=== PATIENT | female | born 2000 | race Caucasian/White ===

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

== ENCOUNTER → 2019-11-23 16:20 | Outpatient (CLI) | payer OTHER, MEDICAID, SELFPAY ==
[2019-11-26 03:07] LABS: Chlamydia By Nucleic Acid AMP Negative (Negative)
[2019-11-26 08:25] LABS: Gonococcus By Nucleic Acid AMP Negative (Negative)
== END ==
PROVIDERS: PCP Pediatrics; Visit Provider Student in an Organized Health Care Education/Training Program
DX: Z11.3 Encounter for screening for infections with a predominantly sexual mode of transmission (principal)
CPT/HCPCS: 87491; 87591

== ENCOUNTER → 2020-04-11 15:05 | Outpatient (CLI) | payer OTHER, MEDICAID, SELFPAY ==
[2020-04-11 17:01] LABS: Hematocrit 37.5 % (37-47); Hemoglobin 12.6 g/dL (12.0-15.0); Mean Corp Hgb Conc 33.6 g/dL (32-36); Mean Corpuscular Hgb 29.5 pg (27.0-32.0); Mean Corpuscular Volume 87.8 fL (81-99); Mean Platelet Vol. 10.5 fl (6.2-12.0); Platelet Count 293 K/mm3 (150-450); RBC Distribution Width CV 14.3 % (11.6-14.6); RBC Distribution Width SD 43.3 fl (35.1-43.9); Red Blood Count 4.27 M/mm3 (4.2-5.4); White Blood Count 7.5 K/mm3 (4.4-11.0)
[2020-04-11 17:46] LABS: T4 Free Direct 1.07 ng/dL (0.76-1.46)
== END ==
PROVIDERS: PCP Pediatrics; Visit Provider Student in an Organized Health Care Education/Training Program
DX: N92.6 Irregular menstruation, unspecified (principal)
CPT/HCPCS: 36415; 84439; 84443; 85027

== ENCOUNTER → 2021-11-24 | Outpatient (CLI) | payer MEDICAID, SELFPAY ==
[2021-11-24 10:52] LABS: Absolute Lymphocyte Count 3.08 X10^3/uL (0.83-4.51); Absolute Neutrophil Count 6.1 X10^3/uL (2.0-7.7); Basophil# 0.03 X10^3/uL; Basophil% 0.3 % (0-1); Eosinophil# 0.26 X10^3/uL; Eosinophils% 2.5 % (0-5); Hemoglobin 11.6 g/dL (12.0-15.0); Lymphocyte # 3.08 X10^3/ul (0.83-4.51); Lymphocyte % 30.2 % (19-41); Mean Corp Hgb Conc 32.2 g/dL (32-36); Mean Corpuscular Hgb 27.9 pg (27.0-32.0); Mean Corpuscular Volume 86.5 fL (81-99); Mean Platelet Vol. 10.9 fl (6.2-12.0); Monocyte# 0.74 X10^3/uL; Monocyte% 7.2 % (0-10); NRBC Flagged by Analyzer 0 % (0-5); Neutrophil # 6.07 X10^3/uL (2.7-7.7); Neutrophil % 59.5 % (47-70); Platelet Count 319 K/mm3 (150-450); RBC Distribution Width SD 40.6 fl (35.1-43.9); Red Blood Count 4.16 M/mm3 (4.2-5.4); White Blood Count 10.2 K/mm3 (4.4-11.0)
[2021-11-24 12:00] LABS: HIV - WCH Non-Reactive (Nonreactive); Hepatitis B Surface Antigen Non-Reactive (Nonreactive); Hepatitis C Antibody Non-Reactive (Nonreactive); Rubella IgG Reactive (Nonreactive); Syphilis Antibodies Non-reactive
[2021-11-25 11:09] LABS: V-Zoster IgG (Immunity) 181 index (Immune >165)
[2021-11-27 22:06] LABS: Chlamydia By Nucleic Acid AMP Negative (Negative)
[2021-11-28 15:12] LABS: Gonococcus By Nucleic Acid AMP Negative (Negative)
[2021-12-01 20:53] LABS: HPV Reflexed? NOT INDICATED
== END | disposition home or self-care (01) ==
LOC: WOBLAB 09:58
PROVIDERS: PCP Pediatrics; Visit Provider Obstetrics & Gynecology
DX: Z34.81 Encounter for supervision of other normal pregnancy, first trimester (principal)
CPT/HCPCS: 36415; 85025; 86703; 86762; 86780; 86787; 86803; 87086; 87088; 87340; 87491; 87591; 88175; G0145

== ENCOUNTER → 2022-03-13 | Outpatient (CLI) | payer MEDICAID, SELFPAY ==
[2022-03-13 16:42] LABS: Absolute Lymphocyte Count 2.59 X10^3/uL (0.83-4.51); Absolute Neutrophil Count 9.5 X10^3/uL (2.0-7.7); Basophil# 0.03 X10^3/uL; Basophil% 0.2 % (0-1); Eosinophil# 0.13 X10^3/uL; Hematocrit 36.2 % (37-47); Hemoglobin 11.8 g/dL (12.0-15.0); Lymphocyte # 2.59 X10^3/ul (0.83-4.51); Lymphocyte % 19.7 % (19-41); Mean Corp Hgb Conc 32.6 g/dL (32-36); Mean Corpuscular Hgb 28.5 pg (27.0-32.0); Mean Corpuscular Volume 87.4 fL (81-99); Monocyte# 0.78 X10^3/uL; Monocyte% 5.9 % (0-10); NRBC Flagged by Analyzer 0 % (0-5); Neutrophil # 9.53 X10^3/uL (2.7-7.7); Neutrophil % 72.5 % (47-70); Platelet Count 296 K/mm3 (150-450); RBC Distribution Width CV 13.5 % (11.6-14.6); RBC Distribution Width SD 42.8 fl (35.1-43.9); Red Blood Count 4.14 M/mm3 (4.2-5.4); White Blood Count 13.2 K/mm3 (4.4-11.0)
[2022-03-13 17:34] LABS: Glucose Challenge Gest 1H 50g 101 mg/dL (70-140)
== END | disposition home or self-care (01) ==
LOC: WOBLAB 16:00
PROVIDERS: PCP Pediatrics; Visit Provider Obstetrics & Gynecology
DX: Z34.82 Encounter for supervision of other normal pregnancy, second trimester (principal)
CPT/HCPCS: 36415; 82950; 85025

== ENCOUNTER → 2022-05-08 | Outpatient (CLI) | payer MEDICAID, SELFPAY ==
[2022-05-08 16:08] LABS: Absolute Neutrophil Count 10.2 X10^3/uL (2.0-7.7); Basophil# 0.03 X10^3/uL; Basophil% 0.2 % (0-1); Eosinophil# 0.13 X10^3/uL; Eosinophils% 0.9 % (0-5); Hematocrit 34.3 % (37-47); Hemoglobin 10.7 g/dL (12.0-15.0); Lymphocyte % 17.2 % (19-41); Mean Corp Hgb Conc 31.2 g/dL (32-36); Mean Corpuscular Hgb 26.8 pg (27.0-32.0); Mean Platelet Vol. 10.5 fl (6.2-12.0); Monocyte# 1.04 X10^3/uL; Monocyte% 7.5 % (0-10); NRBC Flagged by Analyzer 0 % (0-5); Neutrophil # 10.22 X10^3/uL (2.7-7.7); Neutrophil % 73.5 % (47-70); Platelet Count 334 K/mm3 (150-450); RBC Distribution Width CV 13.7 % (11.6-14.6); RBC Distribution Width SD 42.5 fl (35.1-43.9); Red Blood Count 3.99 M/mm3 (4.2-5.4); White Blood Count 13.9 K/mm3 (4.4-11.0)
[2022-05-08 16:27] LABS: Protein, Urine (Random) 29.1 mg/dL (<11.9); Protein:Creat Ratio 153 mg/g CRE (0-200)
[2022-05-08 16:36] LABS: ALB/GLOB Ratio 0.5 RATIO (0.9-2.4); AST(SGOT) 10 U/L (15-37); Alanine Aminotransfer ALT/SGPT 9 U/L (13-56); Albumin, Serum 2.1 g/dL (3.2-5.0); Alkaline Phosphatase 166 U/L (45-117); Anion Gap 10 (5-15); BUN 5 mg/dL (7-18); BUN/Creat Ratio 9.2 RATIO (10-20); Chloride 106 mmol/L (98-107); Creatinine, Serum 0.54 mg/dL (0.55-1.02); EST Glomerular Filtration Rate 148 mL/min (>60); Est Glom Filt Rate - Afr Amer 179 mL/min (>60); Globulin 4.3 g/dL (2.2-4.2); Glucose 89 mg/dL (74-106); LDH 182 U/L (84-246); Potassium 3.5 mmol/L (3.5-5.1); Protein, Total 6.4 g/dL (6.4-8.2); Sodium Level 140 mmol/L (136-145)
== END | disposition home or self-care (01) ==
LOC: WOBLAB 15:07
PROVIDERS: PCP Pediatrics; Visit Provider Obstetrics & Gynecology
DX: O13.3 Gestational [pregnancy-induced] hypertension without significant proteinuria, third trimester (principal); Z3A.00 Weeks of gestation of pregnancy not specified
CPT/HCPCS: 36415; 80053; 82570; 83615; 84156; 85025; 87086; 87088

== ENCOUNTER 2022-06-06 17:55 | Inpatient (IN) | payer MEDICAID, SELFPAY ==
[2022-06-06] VITALS (105 sets, daily range): BP systolic 124–200; BP diastolic 63–111; PULSE 77–118; RESP 16–20; TEMP 36.6–37.2; O2SAT 87–100; BMI 52.2
[2022-06-06 17:40] LABS: Hematocrit 34.4 % (37-47); Hemoglobin 10.9 g/dL (12.0-15.0); Mean Corp Hgb Conc 31.7 g/dL (32-36); Mean Corpuscular Hgb 26.1 pg (27.0-32.0); Mean Corpuscular Volume 82.3 fL (81-99); Mean Platelet Vol. 10.6 fl (6.2-12.0); Platelet Count 306 K/mm3 (150-450); RBC Distribution Width CV 14.8 % (11.6-14.6); Red Blood Count 4.18 M/mm3 (4.2-5.4); White Blood Count 14.5 K/mm3 (4.4-11.0)
[2022-06-06 18:00] LABS: AST(SGOT) 15 U/L (15-37); Alanine Aminotransfer ALT/SGPT 14 U/L (13-56); Creatinine, Serum 0.65 mg/dL (0.55-1.02); EST Glomerular Filtration Rate 121 mL/min (>60); Est Glom Filt Rate - Afr Amer 147 mL/min (>60); Estimated Creatinine Clearance 117.23 ml/min; Uric Acid 5.9 mg/dL (2.6-6.0)
[2022-06-06] MEDS: NIFEdipine 10 MG Capsule PO (18:06)
[2022-06-06 18:17] LABS: Protein, Urine (Random) 1420.6 mg/dL (<11.9); Protein:Creat Ratio 4583 mg/g CRE (0-200)
[2022-06-06] MEDS: Magnesium Sulfate 4gm/100mL 4 GM/100 ML IV.SOLN. IV (18:45)
[2022-06-06] MEDS: Lactated Ringers 1,000 ML 15 ML IV (18:49)
--- NOTE | 2022-06-06 18:56 | HP.PCM.OB_ITS ---
History and Physical Date of Admission: 06/06/22 Chief complaint: Elevated blood pressures History present illness: 21-year-old at 36 weeks and 5 days with CHELI 06/29/2022 arrives from office with elevated blood pressures. Patient denies headache, visual change, chest pain, shortness of breath, nausea vomit, right upper quadrant pain. Patient states good movement. is complicated by now preeclampsia with severe features based on severe range blood pressures, BMI 52, anxiety and depression Obstetric history: G1: Term male 9 pounds 12 ounces G2: Current Past medical history: Preeclampsia with severe features, anxiety and depression Medications: Lexapro, Vistaril Allergies: No known drug allergies Past surgical history: None Family history: Denies history DVT or PE Social history: Former smoker, denies alcohol use, drug use Review of systems: Besides above pertinent positives a full review of systems was performed and found to be negative Physical exam: Current vitals: Blood pressure 146/81 pulse 84 SPO2 97% on room air General: Normal-appearing no acute distress HEENT: Normocephalic/atraumatic no cervical lymphadenopathy Cardiac/respiratory: No use of accessory muscles, nonlabored breathing Abdomen: Soft, nontender, gravid Pelvic exam: Cervical exam 60/-3 Extremities: No peripheral edema normal peripheral pulses Psych: Normal affect and demeanor nonpressured speech Labs: White blood cell count 14.5 hemoglobin 10.9 hematocrit 34.4% platelets 306. Creatinine 0.65. AST 15 ALT 14. Urine protein creatinine ratio 4583 Assessment and plan: 21-year-old G2, P1 at 36 weeks and 5 days arrives from office with elevated blood pressures, HELLP labs order given from office. Arrived to patient's room with patient with severe range blood pressure, 187/109, no other staff present in room. Discussed with charge nurse the patient had arrived to triage greater than an hour ago with initial vitals just taken and severe range blood pressure with no staff in room. Given orders for nifedipine 10 mg p.o. now as patient did not have IV line and had possible unknown severe range blood pressures between time of arrival and initial blood pressure. Prior to nifedipine repeat BP 198/111. Patient laying comfortably in bed remains asymptomatic. Verbal orders given to charge nurse for p.o. nifedipine 10 mg now. Given instructions if IV line could not be obtained to give IM mag 10 g total, 5 g in each buttocks. Anesthesia was called for IV line. IM mag arrived to room after discussion with pharmacy via charge nurse. With anesthesia present with ultrasound-guided IV being attempted, held IM mag, IV mag in the room. Anesthesia obtained IV line, order for magnesium 6 g bolus and to run at 2 g an hour. Fluid restriction 150 cc an hour. Educated patient on severe preeclampsia, discussed treatment plan including magnesium while in patient room for above evaluation. Also discussed and need for induction, discussed risks of baby. Patient states understanding and wishes to proceed. GBS unknown to start penicillin. Repeat blood pressures nonsevere range after nifedipine given. Magnesium level in 6 hours after bolus. We will continue to monitor BP's. For Pitocin for induction. Ashwini now. Discussed case with Quality Engineer Medical Device
[2022-06-06] MEDS: Magnesium Sulfate 4gm/100mL 2 GM/50 ML IV.SOLN. IV (19:05)
[2022-06-06 19:14] LABS: Mucous, Urine 0 SEEN /hpf (<or=2+)
[2022-06-06] MEDS: Magnesium Sulfate 20 GM/500 ML BAG IV (19:20)
[2022-06-06 19:22] LABS: Color, Urine Yellow (Yellow); Glucose, Dipstick Normal (Normal); Ketone-Dipstick 5 mg/dl (Negative); Leukocyte Esterase-Dipstick 25 /ul (Negative); Nitrite-Dipstick Negative (Negative); Occult Blood-Urine 25 /ul (Negative); Protein-Dipstick 500 mg/dl (Negative); Specific Gravity, Urine 1.025 (1.002-1.030); Urine Bilirubin Dipstick Negative (Negative); Urine Clarity Cloudy (Clear); Urine Urobilinogen Normal (Normal)
[2022-06-06] MEDS: Betamethasone/Betamethasone 30 MG/5 ML Vial 12 MG IM (19:32)
[2022-06-06 19:35] LABS: Red Blood Cells-Urine 0-5 SEEN /hpf (0-5); Squamous Epithelial Cells - UA 10-25 SEEN /hpf (5-10); White Blood Cells 25-50 SEEN /hpf (0-5)
[2022-06-06 19:36] LABS: Bacteria 3+ /hpf (None Seen)
[2022-06-06 19:37] LABS: Hyaline Cast 10-25 SEEN /lpf (0-5)
[2022-06-06 19:48] LABS: Syphilis Antibodies Non-reactive
[2022-06-06] MEDS: Oxytocin 15 Units/NS 250ml 15 UNITS/250 ML IV.SOLN 2 UNITS IV (20:19)
[2022-06-06 20:47] LABS: Group B Strep DNA By PCR Negative (Negative); Internal Control PASS; Probe Check PASS; Specimen Processing Control PASS
[2022-06-06] MEDS: Labetalol 100 MG Tablet PO (20:58)
[2022-06-06] MEDS: Labetalol (Prefilled) 20 MG/4 ML IV (21:45)
[2022-06-06] MEDS: Labetalol 200 MG Tablet PO (22:06)
[2022-06-06] MEDS: LACTATED RINGERS 500 ML 999 ML IV (23:20)
[2022-06-06] MEDS: Penicillin G 3,000,000 Units 50 ML 100 UNITS IV (23:49)
[2022-06-07] VITALS (170 sets, daily range): BP systolic 80–149; BP diastolic 31–86; PULSE 64–101; RESP 16–21; TEMP 35.9–36.8; O2SAT 85–100
[2022-06-07] MEDS: fentaNYL-bupivacaine (epidural) 100 ML BAG EPIDURAL (00:14)
[2022-06-07 01:22] LABS: Magnesium 5.1 mg/dL (1.6-2.6)
[2022-06-07] MEDS: Albuterol 2.5 MG/3 ML VIAL.NEB. INHALATION (01:45)
--- NOTE | 2022-06-07 02:10 | CPS ---
Pt is breathing shallow..encouraged pt to deep breathe throughout aerosol tx, and also afterwards RT gave incentive spirometer to continue deep breathing exercises. RN aware , was present throughout breathing treatment. Pt is requiring nasal o2 3L.
--- NOTE | 2022-06-07 03:50 | RAD_ITS ---
EXAM: XR CHEST, 1 VIEW CLINICAL INDICATION: low oxygen saturation TECHNIQUE: Frontal view of the chest. This report was created using [employer] report generation technology. COMPARISON: None. FINDINGS: LUNGS AND PLEURAL SPACES: Streaky opacities in the lower lobes bilaterally may be due to atelectasis but areas of pneumonia cannot be excluded. Pulmonary vascular congestion. No pneumothorax. No effusion. HEART: Mild cardiomegaly. MEDIASTINUM: Central airways and mediastinal contour are unremarkable. BONES/JOINTS: Unremarkable. SOFT TISSUES: Unremarkable. RAD/Chest 1 View (Portable) IMPRESSION: 1. Streaky opacities in the lower lobes bilaterally may be due to atelectasis but areas of pneumonia cannot be excluded. 2. Mild cardiomegaly. 3. Pulmonary vascular congestion. Electronically Signed: Dimitrios Babcock MD at 4:59 EDT ,
[2022-06-07] MEDS: Penicillin G 3,000,000 Units 50 ML 100 UNITS IV ×3 (03:59→11:28)
--- NOTE | 2022-06-07 04:30 | CT_ITS ---
EXAM: CT ANGIOGRAPHY CHEST WITHOUT AND WITH INTRAVENOUS CONTRAST CLINICAL INDICATION: Decreased SpO2 TECHNIQUE: Helically acquired angiography images were obtained of the chest without and with intravenous contrast. This CT exam was performed using one or more of the following dose reduction techniques: automated exposure control, adjustment of the mA and/or kV according to patient size, and/or use of iterative reconstruction technique. This report was created using [employer] report generation technology. MIP reconstructed images were created and reviewed. CONTRAST: 100 cc of Isovue-370 IV. RADIATION DOSE: CTDIvol = 34.97 mGy, DLP = 770.75 mGy-cm. COMPARISON: None. FINDINGS: PULMONARY ARTERIES: Unremarkable. Normal in caliber. No evidence of pulmonary embolism. AORTA: Unremarkable. Normal in caliber. No evidence of dissection. GREAT VESSELS OF AORTIC ARCH: Unremarkable. Normal in caliber. No evidence of dissection. LUNGS AND PLEURAL SPACES: Slight bilateral pleural effusions. Subsegmental atelectasis in the lower lobes bilaterally. No mass. No pneumothorax. HEART: Unremarkable. Heart size is normal. No pericardial effusion. No signs of right heart strain, ratio of right ventricle to left ventricle measures less than 1. MEDIASTINUM: Unremarkable. No mediastinal or hilar adenopathy. Esophagus is unremarkable. No hiatal hernia. THYROID: Unremarkable. No thyroid lesions. BONES/JOINTS: Unremarkable. No suspicious lytic or blastic abnormality. CT/CTA Chest W/WO Contrast IMPRESSION: 1. No pulmonary embolism or dissection. 2. Slight bilateral pleural effusions. 3. Subsegmental atelectasis in the lower lobes bilaterally. Electronically Signed: Dimitrios Babcock MD at 5:09 EDT ,
--- NOTE | 2022-06-07 05:06 | EKG12_ITS ---
Test Reason : HYPOXIA Blood Pressure : / mmHG Vent. Rate : 082 BPM Atrial Rate : 082 BPM P-R Int : 162 ms QRS Dur : 082 ms QT Int : 448 ms P-R-T Axes : 052 045 067 degrees QTc Int : 523 ms Normal sinus rhythm Prolonged QT Abnormal ECG No previous ECGs available Confirmed by FABRICE DENIS, XAVIER ([id number]), society editor PINEDA MUNOZ ([id number]) on 06/12/2022 7:49:37 AM Referred By: Saman Telles Confirmed By:ADALBERTO AVINA MD
--- NOTE | 2022-06-07 05:09 | PN.OBGYN_ITS ---
Subjective Subjective Overall no overnight complaints. Patient resting comfortably in bed. With no complaints. Denies shortness of breath, weakness, dizziness, headache, vision changes, chest pain, nausea vomit, right upper quadrant pain. Patient states asymptomatic Objective Data Objective Data Vital Signs: Vital Signs Temp Pulse Resp BP Pulse Ox O2 Del Method O2 Flow Rate 96.6 F L 89 16 141/76 H 94 Nasal Cannula 3 06/07/22 03:33 06/07/22 05:06 06/07/22 01:45 06/07/22 05:04 06/07/22 05:06 06/07/22 01:45 06/07/22 01:45 Oxygen Flow Rate (L/min) 3 Oxygen Delivery Method Nasal Cannula Weight: 304 lb Body Mass Index (BMI) 52.2 Intake & Output: Intake and Output for Last 24 Hours 06/05/22 06/06/22 06/07/22 23:59 23:59 23:59 Intake Total 356.2 / 356.2 407.23 / 407.23 Output Total 300 / 300 125 / 125 Balance 56.2 / 56.2 282.23 / 282.23 Lab / Micro Data Result Diagrams: 06/06/22 17:20 06/06/22 17:20 Labs: Laboratory Results - last 24 hr 06/06/22 17:20: WBC 14.5 H, RBC 4.18 L, Hgb 10.9 L, Hct 34.4 L, MCV 82.3, MCH 26.1 L, MCHC 31.7 L, RDW Std Deviation 43.0, RDW Coeff of Terrance 14.8 H, Plt Count 306, MPV 10.6 06/06/22 17:20: U Random Total Protein 1420.6 H, Urine Creatinine 310.00, Protein/Creatinin Ratio 4583 H 06/06/22 17:20: Creatinine 0.65, Estim Creat Clear Calc 117.23, Est GFR (MDRD) Af Amer 147, Est GFR (MDRD) Non-Af 121, Uric Acid 5.9, AST 15, ALT 14 06/06/22 18:10: Blood Type A POSITIVE, Antibody Screen NEGATIVE 06/06/22 18:40: Urine Color Yellow, Urine Clarity Cloudy, Urine pH 6.0, Ur Specific [place] 1.025, Urine Protein 500 H, Urine Glucose (UA) Normal, Urine Ketones 5 H, Urine Occult Blood 25 H, Urine Nitrite Negative, Urine Bilirubin Negative, Urine Urobilinogen Normal, Ur Leukocyte Esterase 25 H, Urine RBC 0-5 SEEN, Urine WBC 25-50 SEEN, Ur Squamous Epith Cells 10-25 SEEN, Urine Bacteria 3+, Hyaline Casts 10-25 SEEN, Urine Mucus 0 SEEN 06/06/22 18:40: Group B Strep DNA Negative, Specimen Comment Not Reportable 06/06/22 18:45: Syphilis Total Ab Non-reactive 06/07/22 01:02: Magnesium 5.1 H* Radiography Diagnostic Testing: Radiology Impression Chest X-Ray 06/07/22 03:50 IMPRESSION: 1. Streaky opacities in the lower lobes bilaterally may be due to atelectasis but areas of pneumonia cannot be excluded. 2. Mild cardiomegaly. 3. Pulmonary vascular congestion. Electronically Signed: Dimitrios Babcock MD at 4:59 EDT , Physical Exam Const alert, oriented x3, no apparent distress, average body habitus, healthy appearing and well nourished HEENT normocephalic and moist oral mucous membranes Eyes PERRL Neck full ROM Resp normal respiratory effort, no retractions, no use of accessory muscles and clear to auscultation bilaterally Cardio regular rate, regular rhythm, no murmurs, no rub and no gallops GI GI Narrative: Soft, nontender, gravid, obese Extremity normal to inspection and full ROM Extremity Narrative: Normal peripheral pulses in bilateral lower extremities Neuro moves all extremities, no focal motor deficits and deep tendon reflexes 2+ bilaterally Motor Exam: clonus absent Psych mental status grossly normal, affect normal, speech normal and activity/motor behavior normal Assessment & Plan (1) : PLAN: Called overnight by nursing after patient received epidural that patient was hypotensive and requiring facemask oxygen, was reported that patient overall asymptomatic and stable. Instructed to keep SPO2 above 92%, latest magnesium level 5.1 but instructed nursing to turn down magnesium from 2 g an hour to 1.5 g an hour at this time, and to have anesthesia evaluate hypotension after epidural and SPO2 decreased after epidural. Called back by nursing that after anesthesia evaluation nebulizer was ordered by anesthesia, epidural at this time was stopped. Called back by nursing with no improvement after nebulizer, patient still asymptomatic. I arrived for evaluation, patient resting comfortably in bed now off facemask oxygen SPO2 94% on room air, patient not using any accessory muscles and nonlabored breathing. Discussed situation with patient and patient states asymptomatic does not feel short of breath. Auscultation to heart and lungs benign. Patient does states she recently had upper respiratory tract infection. Denies cough, hemoptysis, bilateral lower extremities with no signs of DVT, pulse less than 100. Overall wells criteria 0 but educated patient should rule out signs of PE. Chest x-ray ordered, pulmonary congestion noted. CTA of chest ordered stat, results pending. EKG ordered. Overall patient remains asymptomatic and now SPO2 remains above 92% on room air. Pending results of CTA and EKG we will reevaluate and assess situation.
[2022-06-07] MEDS: Magnesium Sulfate 20 GM/500 ML BAG IV ×2 (06:32→17:37)
[2022-06-07 07:27] LABS: Magnesium 5.6 mg/dL (1.6-2.6)
[2022-06-07] MEDS: Labetalol 100 MG Tablet 300 MG PO (10:21)
[2022-06-07] MEDS: LACTATED RINGERS 500 ML 666 ML IV (10:29)
[2022-06-07] MEDS: 0.9% Saline Lock 10 ML Syringe IV ×4 (10:41→23:34)
[2022-06-07 11:19] LABS: Magnesium 5.8 mg/dL (1.6-2.6)
[2022-06-07] MEDS: Terbutaline 1 MG/ML Vial 0.25 MG SC (11:39)
--- NOTE | 2022-06-07 11:48 | PN.OBGYN_ITS ---
Subjective Subjective Patient remains asymptomatic. Denies headache, vision changes, chest pain, shortness of breath, nausea vomit, right upper quadrant pain. Objective Data Objective Data Vital Signs: Vital Signs Temp Pulse Resp BP Pulse Ox O2 Del Method O2 Flow Rate 98.2 F 97 18 140/83 H 98 Room Air 3 06/07/22 09:33 06/07/22 11:42 06/07/22 06:00 06/07/22 11:21 06/07/22 11:42 06/07/22 06:00 06/07/22 01:45 Oxygen Flow Rate (L/min) 3 Oxygen Delivery Method Room Air Weight: 304 lb Body Mass Index (BMI) 52.2 Intake & Output: Intake and Output for Last 24 Hours 06/05/22 06/06/22 06/07/22 23:59 23:59 23:59 Intake Total 858.95 / 858.95 1635.23 / 1635.23 Output Total 300 / 300 602 / 602 Balance 558.95 / 558.95 1033.23 / 1033.23 Lab / Micro Data Result Diagrams: 06/06/22 17:20 06/06/22 17:20 Labs: Laboratory Results - last 24 hr 06/06/22 17:20: WBC 14.5 H, RBC 4.18 L, Hgb 10.9 L, Hct 34.4 L, MCV 82.3, MCH 26.1 L, MCHC 31.7 L, RDW Std Deviation 43.0, RDW Coeff of Terrance 14.8 H, Plt Count 306, MPV 10.6 06/06/22 17:20: U Random Total Protein 1420.6 H, Urine Creatinine 310.00, Protein/Creatinin Ratio 4583 H 06/06/22 17:20: Creatinine 0.65, Estim Creat Clear Calc 117.23, Est GFR (MDRD) Af Amer 147, Est GFR (MDRD) Non-Af 121, Uric Acid 5.9, AST 15, ALT 14 06/06/22 18:10: Blood Type A POSITIVE, Antibody Screen NEGATIVE 06/06/22 18:40: Urine Color Yellow, Urine Clarity Cloudy, Urine pH 6.0, Ur Specific [place] 1.025, Urine Protein 500 H, Urine Glucose (UA) Normal, Urine Ketones 5 H, Urine Occult Blood 25 H, Urine Nitrite Negative, Urine Bilirubin Negative, Urine Urobilinogen Normal, Ur Leukocyte Esterase 25 H, Urine RBC 0-5 SEEN, Urine WBC 25-50 SEEN, Ur Squamous Epith Cells 10-25 SEEN, Urine Bacteria 3+, Hyaline Casts 10-25 SEEN, Urine Mucus 0 SEEN 06/06/22 18:40: Group B Strep DNA Negative, Specimen Comment Not Reportable 06/06/22 18:45: Syphilis Total Ab Non-reactive 06/07/22 01:02: Magnesium 5.1 H* 06/07/22 06:45: Magnesium 5.6 H* 06/07/22 10:25: Magnesium 5.8 H* Micro: Microbiology 06/06/22 Unknown Genital vaginal Group B Streptococcus Culture - Preliminary Radiography Diagnostic Testing: Radiology Impression Chest X-Ray 06/07/22 03:50 IMPRESSION: 1. Streaky opacities in the lower lobes bilaterally may be due to atelectasis but areas of pneumonia cannot be excluded. 2. Mild cardiomegaly. 3. Pulmonary vascular congestion. Electronically Signed: Dimitrios Babcock MD at 4:59 EDT , Chest CTA 06/07/22 04:30 IMPRESSION: 1. No pulmonary embolism or dissection. 2. Slight bilateral pleural effusions. 3. Subsegmental atelectasis in the lower lobes bilaterally. Electronically Signed: Dimitrios Babcock MD at 5:09 EDT , Physical Exam Const alert, oriented x3 and no apparent distress HEENT normocephalic and moist oral mucous membranes Eyes PERRL Neck full ROM GI GI Narrative: Soft, nontender, gravid, obese Narrative: Cervical exam: Unchanged Extremity normal to inspection and full ROM Neuro moves all extremities, no focal motor deficits and deep tendon reflexes 2+ bilaterally Motor Exam: clonus present Bilaterally Psych mental status grossly normal, affect normal, speech normal and activity/motor behavior normal Assessment & Plan (1) : PLAN: Initially called by nursing with bilateral clonus that was prominent. Overall patient asymptomatic otherwise. Reviewed clonus with nursing, discussed management options. Ultimately given orders for increase mag to 2 g/h and for mag level now. Assuming therapeutic mag level instructed to continue to monitor as patient is already being treated with magnesium for seizure prophylaxis. Again called by nursing with update with prolonged decelerations x2 when sitting up for epidural with anesthesia in the room. Decelerations resolved with position change but could not stay in upright position with intolerance for epidural. Discussed options including left lateral position for epidural placement versus natural labor. Patient declines natural labor. Anesthesia states okay to attempt lateral position for epidural placement. Instructed nursing to attempt lateral epidural placement. I began to physically proceed to labor and delivery, called by nursing that patient now with decelerations with no position change. Discussed with nursing that I would be there within minutes. Upon my arrival evaluation was performed. Reviewed heart rate tracing with nursing and patient. Discussed options with patient for terbutaline and expectant management to later attempt to start Pitocin and attempt for vaginal delivery versus primary section risk benefits alternatives. All questions answered from patient and partner, patient elects for terbutaline and expectant management with goal to restart Pitocin. Patient or stands risk for terminal deceleration and emergency section, states understanding wish to proceed. Terbutaline order given to nursing. Terbutaline given. Discussed care options with anesthesia and discussed anesthesia options for patient both for labor and section. Cervical exam performed, unchanged no signs of other pathology. Discussed with nursing that if variable decelerations occur to start amnioinfusion, amnioinfusion bolus 150 cc and 80 cc/h if recurrent variables occur. Again all questions answered for patient and partner
[2022-06-07 13:41] LABS: Magnesium 6.3 mg/dL (1.6-2.6)
--- NOTE | 2022-06-07 13:59 | PN.OBGYN_ITS ---
Subjective Subjective No complaints. Denies shortness of breath, weakness, dizziness. Denies headache, visual changes, chest pain, shortness of breath, right upper quadrant pain. Objective Data Objective Data Vital Signs: Vital Signs Temp Pulse Resp BP Pulse Ox O2 Del Method O2 Flow Rate 98.2 F 85 18 113/58 L 100 Room Air 3 06/07/22 13:48 06/07/22 13:55 06/07/22 06:00 06/07/22 13:40 06/07/22 13:55 06/07/22 06:00 06/07/22 01:45 Oxygen Flow Rate (L/min) 3 Oxygen Delivery Method Room Air Weight: 304 lb Body Mass Index (BMI) 52.2 Intake & Output: Intake and Output for Last 24 Hours 06/05/22 06/06/22 06/07/22 23:59 23:59 23:59 Intake Total 858.95 / 858.95 1745.23 / 1745.23 Output Total 300 / 300 782 / 782 Balance 558.95 / 558.95 963.23 / 963.23 Lab / Micro Data Result Diagrams: 06/06/22 17:20 06/06/22 17:20 Labs: Laboratory Results - last 24 hr 06/06/22 17:20: WBC 14.5 H, RBC 4.18 L, Hgb 10.9 L, Hct 34.4 L, MCV 82.3, MCH 26.1 L, MCHC 31.7 L, RDW Std Deviation 43.0, RDW Coeff of Terrance 14.8 H, Plt Count 306, MPV 10.6 06/06/22 17:20: U Random Total Protein 1420.6 H, Urine Creatinine 310.00, Protein/Creatinin Ratio 4583 H 06/06/22 17:20: Creatinine 0.65, Estim Creat Clear Calc 117.23, Est GFR (MDRD) Af Amer 147, Est GFR (MDRD) Non-Af 121, Uric Acid 5.9, AST 15, ALT 14 06/06/22 18:10: Blood Type A POSITIVE, Antibody Screen NEGATIVE 06/06/22 18:40: Urine Color Yellow, Urine Clarity Cloudy, Urine pH 6.0, Ur Specific [place] 1.025, Urine Protein 500 H, Urine Glucose (UA) Normal, Urine Ketones 5 H, Urine Occult Blood 25 H, Urine Nitrite Negative, Urine Bilirubin Negative, Urine Urobilinogen Normal, Ur Leukocyte Esterase 25 H, Urine RBC 0-5 SEEN, Urine WBC 25-50 SEEN, Ur Squamous Epith Cells 10-25 SEEN, Urine Bacteria 3+, Hyaline Casts 10-25 SEEN, Urine Mucus 0 SEEN 06/06/22 18:40: Group B Strep DNA Negative, Specimen Comment Not Reportable 06/06/22 18:45: Syphilis Total Ab Non-reactive 06/07/22 01:02: Magnesium 5.1 H* 06/07/22 06:45: Magnesium 5.6 H* 06/07/22 10:25: Magnesium 5.8 H* 06/07/22 13:15: Magnesium 6.3 H* Micro: Microbiology 06/06/22 Unknown Genital vaginal Group B Streptococcus Culture - Preliminary Radiography Diagnostic Testing: Radiology Impression Chest X-Ray 06/07/22 03:50 IMPRESSION: 1. Streaky opacities in the lower lobes bilaterally may be due to atelectasis but areas of pneumonia cannot be excluded. 2. Mild cardiomegaly. 3. Pulmonary vascular congestion. Electronically Signed: Dimitrios Babcock MD at 4:59 EDT , Chest CTA 06/07/22 04:30 IMPRESSION: 1. No pulmonary embolism or dissection. 2. Slight bilateral pleural effusions. 3. Subsegmental atelectasis in the lower lobes bilaterally. Electronically Signed: Dimitrios Babcock MD at 5:09 EDT , Physical Exam Const alert, oriented x3 and no apparent distress HEENT normocephalic and moist oral mucous membranes Eyes PERRL Neck full ROM Resp normal respiratory effort, no retractions and no use of accessory muscles Extremity normal to inspection and full ROM Neuro moves all extremities and no focal motor deficits Psych mental status grossly normal, affect normal, speech normal and activity/motor behavior normal Assessment & Plan (1) : PLAN: Called by nursing with minimal variability no acceleration with scalp stim, variable with acoustic stim. Also nursing informed me that while sleeping patient drops SPO2 to 80s. Patient remains asymptomatic. Instructed nursing to keep SPO2 92% and okay to use nasal cannula or nonrebreather to keep SPO2 92% or above. Shortly after orders given arrived to room for evaluation. Patient seen and examined. Remains asymptomatic. Educated patient on likely sleep apnea and BMI related hypoxia. Patient states understanding. Discussed heart rate tracing with nursing and patient, discussed Pitocin protocol with nursing we both agree at that time cannot start Pitocin at this time as not meeting criteria based on protocol. Educated patient on Pitocin protocol and heart rate tracing. Discussed cannot start Pitocin, patient is not aneesh on her own and also overall category 2 tracing. Educated patient on r ecommendation for primary section for intolerance of labor, risk benefits alternatives given discussed in depth risk for infection. Patient discussed with partner. Patient elects for primary section. Patient understands risk of the procedure include but are not limited to visceral or vascular injury, prolonged hospitalization, blood loss and need for transfusion, reoperation. Patient state understanding and wished to proceed. All questions were answered and consent was signed. For 3 g Ancef and 500 mg of azithromycin. Instructed nursing to have Hemabate and Cytotec in room during section. Instructed nursing to call anesthesia to discuss options for an esthesia for this patient. For now
[2022-06-07] MEDS: Sodium Citrate/Citric Acid 30 ML UDC PO (14:20)
[2022-06-07] MEDS: Carboprost Tromethamine 250 MCG/ML Ampul IM (15:02)
--- NOTE | 2022-06-07 15:31 | OP.PCM_ITS ---
Details Operative Information Date of Procedure: 06/07/22 Pre-Operative Diagnosis: Preeclampsia with severe features, intolerance to labor Post-Operative Diagnosis: Preeclampsia with severe features, intolerance to labor [employer]: Gabriele Ryan Findings Description of Procedure: Procedure: Primary low transverse section Via Pfannenstiel incision Surgeon: Saman Telles MD Anesthesia: Spinal EBL: 700 cc IV fluids: 800 cc Urine output: 500 cc Complications: None Specimen: None Findings: Male in vertex position, Apgars 7/8. Normal uterus, tubes, and ovaries. Consent: Patient with intolerance to labor educated on options and patient elects for primary section Via Pfannenstiel incision. Patient understands risk of the procedure include but are not limited to visceral or vascular injury, prolonged hospitalization, blood loss need for transfusion, reoperation. Patient state understanding wish to proceed. All questions were answered and consent was signed. Procedure: Patient was brought back to the OR where spinal anesthesia was found to be adequate. 3 g of Ancef and 500 mg of azithromycin were given for infection prophylaxis. Patient was prepared and draped in a supine position with leftward tilt. A Pfannenstiel incision was made at the skin with a scalpel. The incision was carried down to the fascia with a scalpel. The fascia was excised and extended laterally. Inferior aspect of the fascia was grasped with a clamp and the underlying rectus and pyramidalis muscle were dissected off sharply with Esposito scissors. In similar aspect the superior aspect of the fascia was grasped with a clamp and the underlying rectus muscle was dissected off sharply. Rectus muscle was dissected at the midline down to the level of the pubic symphysis. Preperitoneal fatty tissue was noted peritoneum was entered bluntly. Peritoneum was extended superiorly and inferiorly with good visualization of bladder. Bladder blade was inserted and vesicouterine peritoneum was identified. Low transverse hysterotomy was made. Hand was placed into the incision and gentle fundal pressure was applied once the head was brought into the incision and the bladder blade was removed. Head and shoulders were delivered with ease. Cord was clamped and cut. Baby handed off to nursing. Placenta was delivered via cord traction and fundal massage for initial portion of placenta, manual extraction of remaining lobe of placenta was removed. Uterus was exteriorized and wiped out with dry laparotomy sponge in order to remove remaining placental membranes. Internal portion of the uterus was inspected and no remaining placental tissue was noted and hemostatic. IV oxytocin was initiated in order to facilitate uterine contractions, prophylactic Hemabate IM was given with magnesium use during labor. Uterus was closed in a continuous running fashion. [id number] sutures were used for hemostasis. Good hemostasis was noted. Uterus was placed back into the abdominal cavity and the incision was reinspected, good hemostasis was noted. Fascia was closed in a continuous running fashion with PDS suture. Subcutaneous irrigation was performed. Good hemostasis was noted. Skin was closed in a subcuticular fashion. All counts were correct x2. Patient tolerated procedure well and was brought to recovery in a stable condition.
[2022-06-07] MEDS: Oxytocin 15 Units/NS 250ml 15 UNITS/250 ML IV.SOLN 83 UNITS IV (15:45)
[2022-06-07] MEDS: Acetaminophen 500 MG Tablet 1000 MG PO ×2 (17:34→23:34)
[2022-06-07] MEDS: Ketorolac 30 MG/ML Syringe IV ×2 (17:34→23:34)
[2022-06-07] MEDS: Lactated Ringers 1,000 ML 50 ML IV (19:08)
[2022-06-07] MEDS: HYDROmorphone 0.5 MG/0.5 ML SYRINGE IV (20:25)
[2022-06-07 20:31] LABS: Magnesium 7.1 mg/dL (1.6-2.6)
[2022-06-07] MEDS: Cefazolin 1 GM/50 ML BAG IV (22:19)
[2022-06-08] VITALS (17 sets, daily range): BP systolic 96–150; BP diastolic 54–82; PULSE 66–84; RESP 14–18; TEMP 36.2–37; O2SAT 87–98
[2022-06-08] MEDS: Magnesium Sulfate 20 GM/500 ML BAG IV (03:32)
[2022-06-08] MEDS: Enoxaparin 40 MG/0.4 ML Syringe SC ×3 (03:33→22:01)
[2022-06-08 03:40] LABS: Magnesium 8.4 mg/dL (1.6-2.6)
[2022-06-08] MEDS: Furosemide 20 MG/2 ML VIAL IV (04:25)
[2022-06-08 04:26] LABS: Hematocrit 28.3 % (37-47); Hemoglobin 8.8 g/dL (12.0-15.0); Mean Corp Hgb Conc 31.1 g/dL (32-36); Mean Corpuscular Hgb 26.4 pg (27.0-32.0); Mean Platelet Vol. 10.1 fl (6.2-12.0); Platelet Count 257 K/mm3 (150-450); RBC Distribution Width CV 15.4 % (11.6-14.6); RBC Distribution Width SD 46.9 fl (35.1-43.9); Red Blood Count 3.33 M/mm3 (4.2-5.4); White Blood Count 16.4 K/mm3 (4.4-11.0)
[2022-06-08 04:44] LABS: ALB/GLOB Ratio 0.5 RATIO (0.9-2.4); AST(SGOT) 14 U/L (15-37); Alanine Aminotransfer ALT/SGPT 7 U/L (13-56); Albumin, Serum 1.6 g/dL (3.2-5.0); Alkaline Phosphatase 152 U/L (45-117); Anion Gap 6 (5-15); BUN 12 mg/dL (7-18); BUN/Creat Ratio 15.1 RATIO (10-20); Calcium,Total 6.6 mg/dL (8.5-10.1); Chloride 104 mmol/L (98-107); EST Glomerular Filtration Rate 95 mL/min (>60); Est Glom Filt Rate - Afr Amer 115 mL/min (>60); Estimated Creatinine Clearance 95.25 ml/min; Globulin 3.5 g/dL (2.2-4.2); Glucose 133 mg/dL (74-106); LDH 242 U/L (84-246); Potassium 3.9 mmol/L (3.5-5.1); Protein, Total 5.1 g/dL (6.4-8.2); Sodium Level 136 mmol/L (136-145)
[2022-06-08] MEDS: Cefazolin 1 GM/50 ML BAG IV (05:46)
[2022-06-08] MEDS: Ketorolac 30 MG/ML Syringe IV ×2 (05:46→11:40)
[2022-06-08] MEDS: Acetaminophen 500 MG Tablet 1000 MG PO ×4 (05:47→23:50)
[2022-06-08 06:54] LABS: Magnesium 7.5 mg/dL (1.6-2.6)
--- NOTE | 2022-06-08 08:12 | PN.OBGYN_ITS ---
Subjective Subjective No overnight complaints. Denies headache, vision change, chest pain, shortness of breath, right upper quadrant pain. Denies dizziness or weakness. Ambulating with ease. Voiding spontaneously. Tolerating regular diet Objective Data Objective Data Vital Signs: Vital Signs Temp Pulse Resp BP Pulse Ox O2 Del Method O2 Flow Rate 97.6 F L 66 14 114/57 L 97 Room Air 97 06/08/22 07:44 06/08/22 07:44 06/08/22 07:44 06/08/22 07:44 06/08/22 07:44 06/08/22 07:49 06/08/22 05:30 Oxygen Flow Rate (L/min) 97 Oxygen Delivery Method Room Air Weight: 304 lb Body Mass Index (BMI) 52.2 Intake & Output: Intake and Output for Last 24 Hours 06/06/22 06/07/22 06/08/22 23:59 23:59 23:59 Intake Total 858.95 / 858.95 4019.35 / 4019.35 725.83 / 725.83 Output Total 300 / 300 1844 / 1844 860 / 860 Balance 558.95 / 558.95 2175.35 / 2175.35 -134.17 / -134.17 Lab / Micro Data Result Diagrams: 06/08/22 04:20 06/08/22 04:20 Labs: Laboratory Results - last 24 hr 06/07/22 10:25: Magnesium 5.8 H* 06/07/22 13:15: Magnesium 6.3 H* 06/07/22 19:57: Magnesium 7.1 H* 06/08/22 03:05: Magnesium 8.4 H* 06/08/22 04:20: WBC 16.4 H, RBC 3.33 L, Hgb 8.8 L, Hct 28.3 L, MCV 85.0, MCH 26.4 L, MCHC 31.1 L, RDW Std Deviation 46.9 H, RDW Coeff of Terrance 15.4 H, Plt Count 257, MPV 10.1 06/08/22 04:20: Sodium 136, Potassium 3.9, Chloride 104, Carbon Dioxide 26.0, Anion Gap 6, BUN 12, Creatinine 0.80, Estim Creat Clear Calc 95.25, Est GFR (MDRD) Af Amer 115, Est GFR (MDRD) Non-Af 95, BUN/Creatinine Ratio 15.1, Glucose 133 H, Calcium 6.6 L, Total Bilirubin 0.10 L, AST 14 L, ALT 7 L, Alkaline P hosphatase 152 H, Lactate Dehydrogenase 242, Total Protein 5.1 L, Albumin 1.6 L, Globulin 3.5, Albumin/Globulin Ratio 0.5 L 06/08/22 06:00: Magnesium 7.5 H* Micro: Microbiology 06/06/22 Unknown Genital vaginal Group B Streptococcus Culture - Preliminary Physical Exam Const alert, oriented x3, no apparent distress, average body habitus, healthy appearing and well nourished HEENT normocephalic and moist oral mucous membranes Eyes PERRL Neck full ROM Resp normal respiratory effort, no retractions and no use of accessory muscles GI GI Narrative: Soft, nontender, bandage clean dry and intact Extremity normal to inspection and full ROM Neuro moves all extremities and no focal motor deficits Psych mental status grossly normal, affect normal, speech normal and activity/motor behavior normal Assessment & Plan (1) delivery delivered: PLAN: Postop day 1 status post primary section for intolerance of labor at 36 weeks. Preeclampsia with severe features based on severe range blood pressures currently on labetalol 3 mg twice daily, held yesterday evening after nursing called with borderline hypotension. Nursing to call with 10:00 blood pressure and will give orders for blood pressure meds. Called by nursing overnight with lethargy, HELLP lab and Mg level ordered given to nursing. Called by nursing with mag level 8.4 upper limit of normal. Instructed to stop magnesium and repeat magnesium level in 2 hours. Also discussed swelling with nursing, patient not breast-feeding, IV Lasix 20 mg given. Patient symptoms improved and mag level 7.5, repeat mag level now and to call with value. We will give magnesium orders pending results. We will continue to evaluate throughout the day. Educated patient on findings feeling much improved now this morning, up in chair comfortable. Educated patient on incision care. Continue Ancef 3 g x 24 hours. Lovenox 40 mg twice daily with BMI and section. We will continue to monitor until postop day 3 to day 4
[2022-06-08 08:44] LABS: Magnesium 7.1 mg/dL (1.6-2.6)
[2022-06-08] MEDS: Senna/Docusate Sodium 1 Tablet PO (10:27)
[2022-06-08] MEDS: Escitalopram Oxalate 10 MG Tablet PO (10:27)
[2022-06-08 12:55] LABS: Magnesium 5.4 mg/dL (1.6-2.6)
[2022-06-08] MEDS: Ibuprofen 600 MG Tablet PO ×2 (17:35→23:50)
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
[2022-06-08] MEDS: 0.9% Saline Lock 10 ML Syringe IV (21:06)
[2022-06-08] MEDS: Labetalol 100 MG Tablet 300 MG PO (21:57)
[2022-06-08] MEDS: oxyCODONE 5 MG Tablet PO (23:20)
[2022-06-09] VITALS (17 sets, daily range): BP systolic 116–183; BP diastolic 53–102; PULSE 68–87; RESP 16–18; TEMP 36.4–37.2; O2SAT 93–100
[2022-06-09] MEDS: Acetaminophen 500 MG Tablet 1000 MG PO ×3 (06:07→20:54)
[2022-06-09] MEDS: Ibuprofen 600 MG Tablet PO ×3 (06:07→20:54)
[2022-06-09 06:46] LABS: Absolute Lymphocyte Count 2.37 X10^3/uL (0.83-4.51); Absolute Neutrophil Count 7.4 X10^3/uL (2.0-7.7); Basophil# 0.03 X10^3/uL; Basophil% 0.3 % (0-1); Eosinophil# 0.09 X10^3/uL; Eosinophils% 0.8 % (0-5); Hematocrit 27.4 % (37-47); Hemoglobin 8.2 g/dL (12.0-15.0); Lymphocyte # 2.37 X10^3/ul (0.83-4.51); Lymphocyte % 21.6 % (19-41); Mean Corp Hgb Conc 29.9 g/dL (32-36); Mean Corpuscular Hgb 25.9 pg (27.0-32.0); Mean Corpuscular Volume 86.7 fL (81-99); Monocyte# 0.87 X10^3/uL; Monocyte% 7.9 % (0-10); NRBC Flagged by Analyzer 0.5 % (0-5); Neutrophil # 7.36 X10^3/uL (2.7-7.7); Neutrophil % 66.9 % (47-70); Platelet Count 250 K/mm3 (150-450); RBC Distribution Width CV 15.9 % (11.6-14.6); Red Blood Count 3.16 M/mm3 (4.2-5.4)
[2022-06-09 07:16] LABS: ALB/GLOB Ratio 0.4 RATIO (0.9-2.4); AST(SGOT) 16 U/L (15-37); Alanine Aminotransfer ALT/SGPT 7 U/L (13-56); Albumin, Serum 1.6 g/dL (3.2-5.0); Alkaline Phosphatase 130 U/L (45-117); Anion Gap 4 (5-15); BUN 17 mg/dL (7-18); BUN/Creat Ratio 30.6 RATIO (10-20); Calcium,Total 7.7 mg/dL (8.5-10.1); Chloride 110 mmol/L (98-107); Creatinine, Serum 0.56 mg/dL (0.55-1.02); EST Glomerular Filtration Rate 144 mL/min (>60); Est Glom Filt Rate - Afr Amer 174 mL/min (>60); Estimated Creatinine Clearance 136.07 ml/min; Globulin 3.6 g/dL (2.2-4.2); Glucose 82 mg/dL (74-106); LDH 263 U/L (84-246); Potassium 3.7 mmol/L (3.5-5.1); Protein, Total 5.2 g/dL (6.4-8.2); Sodium Level 141 mmol/L (136-145)
[2022-06-09] MEDS: Enoxaparin 40 MG/0.4 ML Syringe SC ×2 (10:04→22:06)
[2022-06-09] MEDS: Escitalopram Oxalate 10 MG Tablet PO (10:05)
[2022-06-09] MEDS: Senna/Docusate Sodium 1 Tablet PO (10:05)
[2022-06-09] MEDS: Labetalol 100 MG Tablet 300 MG PO ×2 (10:05→20:54)
--- NOTE | 2022-06-09 10:14 | PN.OBGYN_ITS ---
Subjective Subjective No overnight complaints. Denies headache, vision change, chest pain, shortness of breath, nausea vomit, right upper quadrant pain Objective Data Objective Data Vital Signs: Vital Signs Temp Pulse Resp BP Pulse Ox O2 Del Method O2 Flow Rate 97.9 F 71 16 134/79 H 96 Room Air 97 06/09/22 08:00 06/09/22 08:00 06/09/22 08:00 06/09/22 08:00 06/09/22 08:00 06/09/22 08:00 06/08/22 05:30 Oxygen Flow Rate (L/min) 97 Oxygen Delivery Method Room Air Weight: 304 lb Body Mass Index (BMI) 52.2 Intake & Output: Intake and Output for Last 24 Hours 06/07/22 06/08/22 06/09/22 23:59 23:59 23:59 Intake Total 4019.35 / 4019.35 2595.83 / 2595.83 Output Total 1844 / 1844 1210 / 1210 Balance 2175.35 / 2175.35 1385.83 / 1385.83 Lab / Micro Data Result Diagrams: 06/09/22 05:40 06/09/22 05:40 Labs: Laboratory Results - last 24 hr 06/08/22 12:03: Magnesium 5.4 H* 06/09/22 05:40: WBC 11.0, RBC 3.16 L, Hgb 8.2 L, Hct 27.4 L, MCV 86.7, MCH 25.9 L, MCHC 29.9 L, RDW Std Deviation 49.0 H, RDW Coeff of Terrance 15.9 H, Plt Count 250, MPV 11.0, Immature Gran % (Auto) 2.500 H, Neut % (Auto) 66.9, Lymph % (Auto) 21.6, [place] % (Auto) 7.9, Eos % (Auto) 0.8, Baso % (Auto) 0.3, Absolute Neuts (auto) 7.4, Absolute Lymphs (auto) 2.37, Nucleated RBC % 0.5 06/09/22 05:40: Sodium 141, Potassium 3.7, Chloride 110 H, Carbon Dioxide 27.0, Anion Gap 4 L, BUN 17, Creatinine 0.56, Estim Creat Clear Calc 136.07, Est GFR (MDRD) Af Amer 174, Est GFR (MDRD) Non-Af 144, BUN/Creatinine Ratio 30.6 H, Glucose 82, Calcium 7.7 L, Total Bilirubin 0.10 L, AST 16, ALT 7 L, Alkaline Phosphatase 130 H, Lactate Dehydrogenase 263 H, Total Protein 5.2 L, Albumin 1.6 L, Globulin 3.6, Albumin/Globulin Ratio 0.4 L Micro: Microbiology 06/06/22 Unknown Genital vaginal Group B Streptococcus Culture - Final Group B Beta Streptococcus is not isolated. Physical Exam Const alert, oriented x3, no apparent distress, average body habitus, healthy appearing and well nourished HEENT normocephalic and moist oral mucous membranes Eyes PERRL Neck full ROM Resp normal respiratory effort, no retractions and no use of accessory muscles GI GI Narrative: Soft, nontender, bandage clean dry and intact Extremity normal to inspection and full ROM Neuro moves all extremities and no focal motor deficits Psych mental status grossly normal, affect normal, speech normal and activity/motor behavior normal Assessment & Plan (1) delivery delivered: PLAN: Postop day 2 status post primary section for intolerance of labor. Pain well controlled. Formula feeding. Preeclampsia with severe features based on severe range blood pressures status post magnesium x24 hours. Currently on 300 mg of labetalol twice daily. Asymptomatic. Labs stable this morning. We will continue to monitor blood pressures and treat appropriately. Discussed with patient likely discharge home day 3 to day 4. Status post Ancef x24 hours. Lovenox 40 mg twice daily
[2022-06-09] MEDS: Labetalol (Prefilled) 20 MG/4 ML IV (18:28)
[2022-06-09] MEDS: Magnesium Sulfate 4gm/100mL 4 GM/100 ML IV.SOLN. IV (18:30)
[2022-06-09] MEDS: Magnesium Sulfate 4gm/100mL 2 GM/50 ML IV.SOLN. IV (19:02)
[2022-06-09] MEDS: 0.9% Saline Lock 10 ML Syringe IV ×2 (20:04→21:30)
[2022-06-09] MEDS: Magnesium Sulfate 20 GM/500 ML BAG IV (20:07)
--- NOTE | 2022-06-09 20:23 | NURSING ---
This nurse spoke to he stated pt is ok to have a 150cc fl.restriction, she is ok to be up to the bathroom. And give evening dose of trandate 300mg now. These orders were given to the oncoming nurse Geoff ALANIZ. states to do our best to obtain a 2nd IV line.
[2022-06-09] MEDS: Labetalol (Prefilled) 20 MG/4 ML 40 MG IV (21:32)
[2022-06-09] MEDS: NIFEdipine 30 MG Tablet PO ×2 (21:48→22:22)
--- NOTE | 2022-06-09 23:13 | NURSING ---
2233 BP elevated due to pt in increasing amount of pain with IV start. Next BP WNL 15 min after.
[2022-06-10] VITALS (40 sets, daily range): BP systolic 98–174; BP diastolic 33–101; PULSE 66–83; RESP 16–19; TEMP 36.3–37.1; O2SAT 88–99
[2022-06-10] MEDS: 0.9% Saline Lock 10 ML Syringe IV ×3 (01:05→10:00)
[2022-06-10] MEDS: Labetalol (Prefilled) 20 MG/4 ML IV ×2 (01:06→02:18)
[2022-06-10] MEDS: Labetalol 200 MG Tablet 400 MG PO ×3 (01:38→22:10)
[2022-06-10] MEDS: Labetalol 200 MG Tablet PO ×3 (02:30→18:25)
[2022-06-10 02:42] LABS: Magnesium 4.5 mg/dL (1.6-2.6)
[2022-06-10] MEDS: Acetaminophen 500 MG Tablet 1000 MG PO ×4 (03:55→23:02)
[2022-06-10] MEDS: Ibuprofen 600 MG Tablet PO ×3 (03:55→16:46)
[2022-06-10] MEDS: Magnesium Sulfate 20 GM/500 ML BAG IV ×2 (05:33→13:21)
[2022-06-10 07:39] LABS: Absolute Lymphocyte Count 2.14 X10^3/uL (0.83-4.51); Absolute Neutrophil Count 7.8 X10^3/uL (2.0-7.7); Basophil# 0.03 X10^3/uL; Basophil% 0.3 % (0-1); Eosinophil# 0.17 X10^3/uL; Eosinophils% 1.5 % (0-5); Hematocrit 28.3 % (37-47); Hemoglobin 8.4 g/dL (12.0-15.0); Lymphocyte # 2.14 X10^3/ul (0.83-4.51); Lymphocyte % 19.1 % (19-41); Mean Corp Hgb Conc 29.7 g/dL (32-36); Mean Corpuscular Hgb 25.9 pg (27.0-32.0); Mean Corpuscular Volume 87.3 fL (81-99); Mean Platelet Vol. 10.7 fl (6.2-12.0); Monocyte# 0.76 X10^3/uL; Monocyte% 6.8 % (0-10); NRBC Flagged by Analyzer 0.5 % (0-5); Neutrophil % 69.5 % (47-70); Platelet Count 293 K/mm3 (150-450); RBC Distribution Width CV 15.9 % (11.6-14.6); RBC Distribution Width SD 49.7 fl (35.1-43.9); Red Blood Count 3.24 M/mm3 (4.2-5.4); White Blood Count 11.2 K/mm3 (4.4-11.0)
[2022-06-10 08:01] LABS: ALB/GLOB Ratio 0.4 RATIO (0.9-2.4); AST(SGOT) 19 U/L (15-37); Alanine Aminotransfer ALT/SGPT 12 U/L (13-56); Albumin, Serum 1.7 g/dL (3.2-5.0); Alkaline Phosphatase 135 U/L (45-117); Anion Gap 6 (5-15); BUN 12 mg/dL (7-18); BUN/Creat Ratio 23.7 RATIO (10-20); Calcium,Total 7.7 mg/dL (8.5-10.1); Chloride 106 mmol/L (98-107); Creatinine, Serum 0.51 mg/dL (0.55-1.02); EST Glomerular Filtration Rate 160 mL/min (>60); Est Glom Filt Rate - Afr Amer 194 mL/min (>60); Estimated Creatinine Clearance 149.41 ml/min; Globulin 3.9 g/dL (2.2-4.2); Glucose 84 mg/dL (74-106); LDH 270 U/L (84-246); Potassium 3.9 mmol/L (3.5-5.1); Protein, Total 5.6 g/dL (6.4-8.2); Sodium Level 138 mmol/L (136-145)
[2022-06-10 09:09] LABS: Magnesium 5.6 mg/dL (1.6-2.6)
[2022-06-10] MEDS: Enoxaparin 40 MG/0.4 ML Syringe SC ×2 (09:57→22:10)
[2022-06-10] MEDS: Senna/Docusate Sodium 1 Tablet PO (09:58)
[2022-06-10] MEDS: Escitalopram Oxalate 10 MG Tablet PO (09:59)
--- NOTE | 2022-06-10 12:15 | PCM.PN.OB ---
Subjective Subjective No overnight complaints. Denies headache, vision change, chest pain, shortness of breath, nausea vomit, right upper quadrant pain. Objective Data Objective Data Vital Signs: Vital Signs Temp Pulse Resp BP Pulse Ox O2 Del Method O2 Flow Rate 97.5 F L 67 18 101/44 L 96 Room Air 3 06/10/22 10:35 06/10/22 10:35 06/10/22 10:35 06/10/22 10:35 06/10/22 10:35 06/10/22 10:35 06/10/22 09:30 Oxygen Flow Rate (L/min) 3 Oxygen Delivery Method Room Air Weight: 304 lb Body Mass Index (BMI) 52.2 Intake & Output: Intake and Output for Last 24 Hours 06/08/22 06/09/22 06/10/22 23:59 23:59 23:59 Intake Total 2595.83 / 2595.83 430 / 430 901.12 / 901.12 Output Total 1210 / 1210 1500 / 1500 950 / 950 Balance 1385.83 / 1385.83 -1070 / -1070 -48.88 / -48.88 Lab / Micro Data Result Diagrams: 06/10/22 06:20 06/10/22 06:20 Labs: Laboratory Results - last 24 hr 06/10/22 02:25: Magnesium 4.5 H 06/10/22 06:20: WBC 11.2 H, RBC 3.24 L, Hgb 8.4 L, Hct 28.3 L, MCV 87.3, MCH 25.9 L, MCHC 29.7 L, RDW Std Deviation 49.7 H, RDW Coeff of Terrance 15.9 H, Plt Count 293, MPV 10.7, Immature Gran % (Auto) 2.800 H, Neut % (Auto) 69.5, Lymph % (Auto) 19.1, [place] % (Auto) 6.8, Eos % (Auto) 1.5, Baso % (Auto) 0.3, Absolute Neuts (auto) 7.8 H, Absolute Lymphs (auto) 2.14, Nucleated RBC % 0.5 06/10/22 06:20: Sodium 138, Potassium 3.9, Chloride 106, Carbon Dioxide 26.0, Anion Gap 6, BUN 12, Creatinine 0.51 L, Estim Creat Clear Calc 149.41, Est GFR (MDRD) Af Amer 194, Est GFR (MDRD) Non-Af 160, BUN/Creatinine Ratio 23.7 H, Glucose 84, Calcium 7.7 L, Total Bilirubin 0.20, AST 19, ALT 12 L, Alkaline Phosphatase 135 H, Lactate Dehydrogenase 270 H, Total Protein 5.6 L, Albumin 1.7 L, Globulin 3.9, Albumin/Globulin Ratio 0.4 L 06/10/22 06:20: Magnesium 5.6 H* Micro: Microbiology 06/06/22 Unknown Genital vaginal Group B Streptococcus Culture - Final Group B Beta Streptococcus is not isolated. Physical Exam Const alert, oriented x3, no apparent distress, average body habitus, healthy appearing and well nourished HEENT normocephalic and moist oral mucous membranes Eyes PERRL Neck full ROM Resp normal respiratory effort, no retractions and no use of accessory muscles GI GI Narrative: Soft, nontender, bandage clean dry and intact Extremity normal to inspection and full ROM Neuro moves all extremities and no focal motor deficits Psych mental status grossly normal, affect normal, speech normal and activity/motor behavior normal Assessment & Plan (1) delivery delivered: PLAN: Postop day 3 status post primary section for intolerance of labor at 36 weeks. Pain well controlled. Formula feeding. Preeclampsia with severe features based on severe range blood pressures. Status post mag immediately postoperatively x24 hours. Previously on labetalol 300 mg twice daily. Called by nursing evening of 06/09/2022 with severe range blood pressures that were persistent started on magnesium around 199906/09/2022. Given orders for labetalol 20 mg IV, and to give labetalol 300 mg oral dose early. Called back by nursing that patient lost both IV lines but labetalol 20 mg IV was given prior to IV loss but delay in starting magnesium. IV line was obtained and left first digit. Instructed nursing to call either surgical team, SEWER SEPARATION DESIGNER, ICU, nursing management for support for IV line via ultrasound insertion. Anesthesiologist placed right hand line and magnesium was started. Called back by nursing with severe range pressures that were persistent ordered for 40 mg IV labetalol. Again called by nursing with persistent severe range pressure initially given orders for 80 mg IV labetalol. Call back by nursing with repeat blood pressure nonsevere range held 80 mg of IV labetalol. Instructed to increase labetalol to 400 mg q8hrs starting then. Call back by nursing to inform that based on nursing research and discussion with others the current labetalol protocol should be switched to the maintenance dose labetalol protocol. Therefore next dose of labetalol should be 20 mg IV if needed per protocol. Given instruction to give Procardia 60 mg XL. Call back by nursing again with persistent severe range blood pressures ordered for labetalol 20 mg IV per protocol. Also instructed to make p.o. dosing of labetalol 600 mg q8hrs starting then. Call back by nursing with persistent severe range blood pressures ordered for labetalol 20 mg IV per protocol. Arrived this morning. Debrief with nursing about medications given yesterday and today including total doses in last 24 hours of IV and p.o. medications. Max doses of none of the antihypertensives were reached. We will continue to monitor. Patient seen and examined. Educate patient on hospital stay today and tomorrow. Discussed prolonged hospital stay necessary to manage preeclampsia, hypoxia. Discussed need to consult hospitalist. Discussed we will discuss PICC line with hospitalist. Patient states understanding partner on cell phone speaker states understanding also. Reviewed this plan with nursing. Called hospitalist reviewed past history and current history. Later reviewed with hospitalist in person after hospitalist called patient. Hospitalist discussed likely changing Procardia to 30 mg XL daily and labetalol 200 mg twice daily. We will continue to monitor with hospitalist help
--- NOTE | 2022-06-10 12:44 | PCM.CONS.GEN ---
Assessment & Plan Assessment/Plan (1) Preeclampsia: PLAN: Plan #Preeclampsia/hypertension -Patient denies any history of hypertension, spoke with OB who reported that she had not been overtly hypertensive while she was up until she presented and had to have a -Was brought under control with Procardia, labetalol, magnesium -A.m. Procardia held due to systolic of 100 -The time of evaluation systolic was 118, slowly increasing -Did receive 400 of labetalol this a.m. -We will give nifedipine now at 30 mg and 1600 dose of labetalol will give 200, holding parameters communicated -Given she was stabilized on this regimen very hesitant to completely change medications until she is more stable -At this time no symptoms and blood pressure within normal limits, do not feel she needs any transfer or drips at this time -Would recommend discontinuing ibuprofen if possible as this is not the cause of her hypertension but there is a chance it could contribute, but less likely -Can also consider d/cing fluids as patient is tolerating p.o. as she does seem volume repleted but will defer to primary #Nighttime hypoxia -Very strongly suspect sleep apnea -Continue 3 L O2 at bedtime, can consider BiPAP if needed -We will be very important to have a sleep study as an outpatient -We will also order echocardiogram to assess RVSP and diastolic function of possible/any other contributing abnormalities or sequelae #Morbid obesity -BMI 52.2 kg/m? -Complicates treatment, prognosis, outcomes -Recommend weight loss and lifestyle changes #DVT ppx: Lovenox 40 mg SQ twice daily Kassie Tolentino MD HPI Consult Data Date of Consult: 06/10/22 HPI Narrative Reason for Consultation: Hypertension HPI Narrative: ADELITA RAY, is a 21 F with morbid obesity but no known past medical history who presented to labor and delivery 06/06/2022 at 36 weeks and 5 days from the office due to elevated blood pressures. She had no symptoms but was deemed preeclamptic with severe features due to her severe range blood pressures. She was delivered via 06/07/2022 due to intolerance to labor. Since that time she has had significant difficulty with her blood pressures and has been on magnesium and last night had blood pressures systolic in the 180s and required a total of 100 mg of IV labetalol and a total of 60 g of Procardia to gain control over her blood pressure. This morning blood pressure significantly improved but has been so variable and labile hospitalist consulted to assist with management of her blood pressure. Of note her stay has also been complicated by hypoxia when she sleeps, she will be 88% when sleeping and they will place 3 L of O2 on her which will improve her O2 sats into the 90s. Patient evaluated at bedside with present. She denies any symptoms at this time, ROS entirely negative. Does report that at night she does snore stop breathing but has never been evaluated for sleep apnea or had a sleep study. [facility] [place] Medical History (Updated 06/10/22 @ 12:[address] Kassie Tolentino MD) Anxiety Depression Home Medications vits,calcium no.78-iron fumarate-folic acid 29 mg-1 mg tablet 1 tab PO DAILY 09/04/18 [History Last Taken 06/05/22 20:00 1 tab] escitalopram oxalate 10 mg tablet (Lexapro) 10 mg PO DAILY anxiety 06/06/22 [History Last Taken 06/05/22 22:00 10 mg] hydroxyzine pamoate 50 mg capsule (Vistaril) 50 mg PO QHS sleep aid 06/06/22 [History Last Taken 06/05/22 22:00 50 mg] Allergy/AdvReac Type Severity Reaction Status Date / Time No Known Allergies Allergy Verified 06/06/22 18:04 Social History Smoking Status: Former smoker ROS ROS Narrative General: Denies fever/chills HENT: Denies headache, denies stuffy nose, denies sore throat EYES: Denies changes in vision Resp: Denies cough, denies shortness of breath Cardiac: Denies chest pain GI: Denies abdominal pain, denies changes in bowel, denies nausea/vomiting : Denies changes in urination Extremity: Denies swelling MSK: Denies weakness Neuro: Denies any numbness/tingling Heme: Denies any bleeding or bruising Skin: Denies rashes Psychiatric: No complaints voiced Physical Exam Narrative General: Alert, oriented, no apparent distress, morbidly obese HEENT: Atraumatic, normocephalic Eyes: Anicteric, normal conjunctiva, extraocular movements grossly intact Neck: Supple Respiratory: Some somewhat diminished but suspect this is secondary to body habitus, normal respiratory effort Cardiovascular: Regular rate and rhythm GI: Soft, nontender, nondistended Extremities: No edema Musculoskeletal: Moving all extremities Neuro: No overt focal neurological deficits Skin: No rashes appreciated Psych: Cooperative Lab / Micro Data Result Diagrams: 06/10/22 06:20 06/10/22 06:20 Labs: Laboratory Results - last 24 hr 06/10/22 02:25: Magnesium 4.5 H 06/10/22 06:20: WBC 11.2 H, RBC 3.24 L, Hgb 8.4 L, Hct 28.3 L, MCV 87.3, MCH 25.9 L, MCHC 29.7 L, RDW Std Deviation 49.7 H, RDW Coeff of Terrance 15.9 H, Plt Count 293, MPV 10.7, Immature Gran % (Auto) 2.800 H, Neut % (Auto) 69.5, Lymph % (Auto) 19.1, [place] % (Auto) 6.8, Eos % (Auto) 1.5, Baso % (Auto) 0.3, Absolute Neuts (auto) 7.8 H, Absolute Lymphs (auto) 2.14, Nucleated RBC % 0.5 06/10/22 06:20: Sodium 138, Potassium 3.9, Chloride 106, Carbon Dioxide 26.0, Anion Gap 6, BUN 12, Creatinine 0.51 L, Estim Creat Clear Calc 149.41, Est GFR (MDRD) Af Amer 194, Est GFR (MDRD) Non-Af 160, BUN/Creatinine Ratio 23.7 H, Glucose 84, Calcium 7.7 L, Total Bilirubin 0.20, AST 19, ALT 12 L, Alkaline Phosphatase 135 H, Lactate Dehydrogenase 270 H, Total Protein 5.6 L, Albumin 1.7 L, Globulin 3.9, Albumin/Globulin Ratio 0.4 L 06/10/22 06:20: Magnesium 5.6 H* Charges/Coding Visit Charges Office Visits / Consults: [id number] OP Consult L3
--- NOTE | 2022-06-10 13:00 | NURSING ---
On this RN's assessment, got over 20 beats when checking for clonus - Had RN Emily check - Emily confirmed over 20 beats - Dr. Telles notified of clonus over 10 beats a couple hours ago. Will notify him of more beats when next talk to him. Mag level just checked and within normal limits.
--- NOTE | 2022-06-10 13:06 | ECHOD_ITS ---
Reason For Study: Dyspnea/SOB Procedure This was a 2D Doppler, Color Flow transthoracic echocardiogram. The study was technically difficult. Exam performed portable in patient room. Left Ventricle Normal LV size. The estimated ejection fraction is 55 %. Normal diastololic function. No regional wall motion abnormalities noted. Right Ventricle Normal RV size. Normal systolic function. Atria Normal left atrium. Normal right atrium. No doppler evidence for ASD. Mitral Valve There is no mitral valve stenosis. No mitral valve insufficiency. Tricuspid Valve There is no tricuspid stenosis. Trivial tricuspid valve insufficiency. Unable to estimate RV systolic pressure due to insufficient tricuspid regurgitant envelope. Aortic Valve Trisinus/trileaflet aortic valve. There is no aortic stenosis. Trivial aortic valve insufficiency. Pulmonic Valve There is no pulmonic valvular stenosis. Trivial pulmonic valve insufficiency. Great Vessels Normal aortic root. Pericardium/Pleural No pericardial effusion. MMode/2D Measurements & Calculations LVIDd: 5.4 cm IVSd: 1.2 cm Ao root diam: 2.9 cm LVIDs: 3.4 cm LVPWd: 1.2 cm LA dimension: 4.1 cm RVDd: 4.1 cm FS: 36.4 % LAV(MOD-bp): 66.1 ml LA A4 area: 23.4 cm2 RA A4 area: 12.9 cm2 LAV(MOD-bp) Indexed: 28.3 ml/m2 LAV(MOD-sp2): 60.7 ml LAV(MOD-sp4): 72.0 ml Time Measurements MV dec time: 0.17 sec Doppler Measurements & Calculations MV E max michael: 108.4 cm/sec Lat Peak E' Michael: 17.3 cm/sec Med Peak E' Michael: 12.0 cm/sec MV A max michael: 70.4 cm/sec E/E' lat: 6.3 E/E' med: 9.0 MV E/A: 1.5 MV V2 max: 128.6 cm/sec MV dec slope: 636.4 cm/sec2 Ao V2 max: 153.0 cm/sec MV max P.6 mmHg Ao max P.4 mmHg MV V2 mean: 61.1 cm/sec Ao V2 mean: 104.2 cm/sec MV mean P.0 mmHg Ao mean P.1 mmHg MV V2 VTI: 33.4 cm Ao V2 VTI: 32.0 cm AV (velocity ratio): 0.99 LV V1 max: 142.2 cm/sec MR max michael: 487.2 cm/sec PA V2 max: 106.7 cm/sec LV V1 max P.1 mmHg MR max P.9 mmHg LV V1 mean P.4 mmHg LV V1 mean: 98.4 cm/sec LV V1 VTI: 31.8 cm TR max michael: 284.5 cm/sec TR max P.4 mmHg ECHO/Echo Complete Interpretation Summary The estimated ejection fraction is 55 %. Trivial aortic valve insufficiency. Ordering Physician: Kassie Tolentino Referring Physician: Saman Telles Performed By: Osvaldo Valadez RCS
[2022-06-10] MEDS: NIFEdipine 30 MG Tablet PO ×2 (13:19→22:10)
[2022-06-10 13:40] LABS: Magnesium 6.5 mg/dL (1.6-2.6)
--- NOTE | 2022-06-10 16:18 | RAD_ITS ---
EXAM: XR CHEST, 1 VIEW CLINICAL INDICATION: Pre E with worsening symptoms. TECHNIQUE: Frontal view of the chest. This report was created using [employer] report generation technology. COMPARISON: 06.07.22 FINDINGS: LUNGS AND PLEURAL SPACES: Unremarkable. No consolidation or edema. No pneumothorax. No effusion. HEART: Stable enlarged heart. MEDIASTINUM: Central airways and mediastinal contour are unremarkable. BONES/JOINTS: Unremarkable. SOFT TISSUES: Unremarkable. RAD/Chest 1 View (Portable) IMPRESSION: Stable enlarged heart. Electronically Signed: Fran Louie MD at 17:02 EDT ,
[2022-06-10 16:30] LABS: Base Excess 4 mmol/L (-2 to +2); Bicarbonate 27.8 mmol/L (22-26); Blood Gas Specimen Type ART; O2 Delivery Device Room Air; PO2 70 mmHG (75-100); SITE L Radial; SO2 95 % (95-99); Total Carbon Dioxide 29 mmol/L; pCO2 39.4 mmHg (35-45); pH 7.46 (7.35-7.45)
[2022-06-10 16:31] LABS: Hematocrit 27.8 % (37-47); Hemoglobin 8.5 g/dL (12.0-15.0); Mean Corp Hgb Conc 30.6 g/dL (32-36); Mean Corpuscular Hgb 26.3 pg (27.0-32.0); Mean Corpuscular Volume 86.1 fL (81-99); Mean Platelet Vol. 10.5 fl (6.2-12.0); Platelet Count 290 K/mm3 (150-450); RBC Distribution Width CV 15.9 % (11.6-14.6); RBC Distribution Width SD 49.4 fl (35.1-43.9); Red Blood Count 3.23 M/mm3 (4.2-5.4); White Blood Count 11.4 K/mm3 (4.4-11.0)
[2022-06-10 17:29] LABS: ALB/GLOB Ratio 0.4 RATIO (0.9-2.4); AST(SGOT) 27 U/L (15-37); Alanine Aminotransfer ALT/SGPT 17 U/L (13-56); Albumin, Serum 1.7 g/dL (3.2-5.0); Alkaline Phosphatase 131 U/L (45-117); Anion Gap 6 (5-15); BUN 12 mg/dL (7-18); BUN/Creat Ratio 21.7 RATIO (10-20); Calcium,Total 7.3 mg/dL (8.5-10.1); Chloride 106 mmol/L (98-107); Creatinine, Serum 0.55 mg/dL (0.55-1.02); EST Glomerular Filtration Rate 145 mL/min (>60); Est Glom Filt Rate - Afr Amer 175 mL/min (>60); Estimated Creatinine Clearance 138.55 ml/min; Glucose 101 mg/dL (74-106); Magnesium 5.9 mg/dL (1.6-2.6); Potassium 3.8 mmol/L (3.5-5.1); Protein, Total 5.7 g/dL (6.4-8.2); Sodium Level 138 mmol/L (136-145)
[2022-06-10 18:54] LABS: Magnesium 4.8 mg/dL (1.6-2.6)
--- NOTE | 2022-06-10 22:42 | NURSING ---
At shift change, Lynette ALANIZ in room for report with this RN and Charge Rebecca Burciaga RN. Clonis was present and lasted at least 2-3 minutes and too many beats to count.
[2022-06-11] VITALS (8 sets, daily range): BP systolic 107–151; BP diastolic 53–88; PULSE 71–83; RESP 16–18; TEMP 36.8–37; O2SAT 93–98
[2022-06-11] MEDS: 0.9% Saline Lock 10 ML Syringe IV ×3 (03:13→14:26)
[2022-06-11] MEDS: Acetaminophen 500 MG Tablet 1000 MG PO ×3 (05:06→18:36)
[2022-06-11 05:34] LABS: Absolute Lymphocyte Count 2.65 X10^3/uL (0.83-4.51); Absolute Neutrophil Count 7.6 X10^3/uL (2.0-7.7); Basophil# 0.03 X10^3/uL; Basophil% 0.3 % (0-1); Eosinophil# 0.22 X10^3/uL; Eosinophils% 1.9 % (0-5); Hematocrit 28.5 % (37-47); Hemoglobin 8.7 g/dL (12.0-15.0); Lymphocyte # 2.65 X10^3/ul (0.83-4.51); Lymphocyte % 23.2 % (19-41); Mean Corp Hgb Conc 30.5 g/dL (32-36); Mean Corpuscular Hgb 26.3 pg (27.0-32.0); Mean Corpuscular Volume 86.1 fL (81-99); Mean Platelet Vol. 10.2 fl (6.2-12.0); Monocyte% 6.1 % (0-10); NRBC Flagged by Analyzer 0.3 % (0-5); Neutrophil # 7.61 X10^3/uL (2.7-7.7); Neutrophil % 66.7 % (47-70); Platelet Count 304 K/mm3 (150-450); RBC Distribution Width CV 15.9 % (11.6-14.6); RBC Distribution Width SD 49.4 fl (35.1-43.9); Red Blood Count 3.31 M/mm3 (4.2-5.4); White Blood Count 11.4 K/mm3 (4.4-11.0)
[2022-06-11] MEDS: Labetalol 200 MG Tablet 400 MG PO ×3 (06:14→22:37)
[2022-06-11 06:39] LABS: ALB/GLOB Ratio 0.4 RATIO (0.9-2.4); AST(SGOT) 38 U/L (15-37); Alanine Aminotransfer ALT/SGPT 26 U/L (13-56); Albumin, Serum 1.8 g/dL (3.2-5.0); Alkaline Phosphatase 133 U/L (45-117); Anion Gap 5 (5-15); BUN 14 mg/dL (7-18); BUN/Creat Ratio 26.2 RATIO (10-20); Calcium,Total 8.1 mg/dL (8.5-10.1); Chloride 108 mmol/L (98-107); Creatinine, Serum 0.53 mg/dL (0.55-1.02); EST Glomerular Filtration Rate 151 mL/min (>60); Est Glom Filt Rate - Afr Amer 183 mL/min (>60); Estimated Creatinine Clearance 143.77 ml/min; Glucose 81 mg/dL (74-106); LDH 273 U/L (84-246); Potassium 3.9 mmol/L (3.5-5.1); Protein, Total 5.8 g/dL (6.4-8.2); Sodium Level 140 mmol/L (136-145)
--- NOTE | 2022-06-11 09:49 | PCM.PN.OB ---
Subjective Subjective No overnight complaints. Denies headache, vision change, chest pain, shortness of breath, nausea vomit, right upper quadrant pain Objective Data Objective Data Vital Signs: Vital Signs Temp Pulse Resp BP Pulse Ox O2 Del Method O2 Flow Rate 98.3 F 80 16 131/62 H 93 Room Air 3 06/10/22 19:50 06/11/22 06:12 06/11/22 03:33 06/11/22 06:12 06/11/22 03:33 06/11/22 03:33 06/10/22 09:30 Oxygen Flow Rate (L/min) 3 Oxygen Delivery Method Room Air Weight: 304 lb Body Mass Index (BMI) 52.2 Intake & Output: Intake and Output for Last 24 Hours 06/09/22 06/10/22 06/11/22 23:59 23:59 23:59 Intake Total 430 / 430 1818.62 / 1818.62 Output Total 1500 / 1500 1450 / 1450 1800 / 1800 Balance -1070 / -1070 368.62 / 368.62 -1800 / -1800 Lab / Micro Data Result Diagrams: 06/11/22 05:15 06/11/22 05:15 Labs: Laboratory Results - last 24 hr 06/10/22 12:40: Magnesium 6.5 H* 06/10/22 16:10: WBC 11.4 H, RBC 3.23 L, Hgb 8.5 L, Hct 27.8 L, MCV 86.1, MCH 26.3 L, MCHC 30.6 L, RDW Std Deviation 49.4 H, RDW Coeff of Terrance 15.9 H, Plt Count 290, MPV 10.5 06/10/22 16:10: Sodium 138, Potassium 3.8, Chloride 106, Carbon Dioxide 26.0, Anion Gap 6, BUN 12, Creatinine 0.55, Estim Creat Clear Calc 138.55, Est GFR (MDRD) Af Amer 175, Est GFR (MDRD) Non-Af 145, BUN/Creatinine Ratio 21.7 H, Glucose 101, Calcium 7.3 L, Magnesium 5.9 H*, Total Bilirubin 0.20, AST 27, ALT 17, Alkaline Phosphatase 131 H, Total Protein 5.7 L, Albumin 1.7 L, Globulin 4.0, Albumin/Globulin Ratio 0.4 L 06/10/22 18:37: Magnesium 4.8 H 06/11/22 05:15: WBC 11.4 H, RBC 3.31 L, Hgb 8.7 L, Hct 28.5 L, MCV 86.1, MCH 26.3 L, MCHC 30.5 L, RDW Std Deviation 49.4 H, RDW Coeff of Terrance 15.9 H, Plt Count 304, MPV 10.2, Immature Gran % (Auto) 1.800 H, Neut % (Auto) 66.7, Lymph % (Auto) 23.2, [place] % (Auto) 6.1, Eos % (Auto) 1.9, Baso % (Auto) 0.3, Absolute Neuts (auto) 7.6, Absolute Lymphs (auto) 2.65, Nucleated RBC % 0.3 06/11/22 05:15: Sodium 140, Potassium 3.9, Chloride 108 H, Carbon Dioxide 27.0, Anion Gap 5, BUN 14, Creatinine 0.53 L, Estim Creat Clear Calc 143.77, Est GFR (MDRD) Af Amer 183, Est GFR (MDRD) Non-Af 151, BUN/Creatinine Ratio 26.2 H, Glucose 81, Calcium 8.1 L, Total Bilirubin 0.20, AST 38 H, ALT 26, Alkaline Phosphatase 133 H, Lactate Dehydrogenase 273 H, Total Protein 5.8 L, Albumin 1.8 L, Globulin 4.0, Albumin/Globulin Ratio 0.4 L Micro: Microbiology 06/06/22 Unknown Genital vaginal Group B Streptococcus Culture - Final Group B Beta Streptococcus is not isolated. ABG Data ABG results: ABG 06/10/22 17:23 Specimen Type ART Sample Site L Radial pH 7.46 H Bicarbonate Actual 27.8 H Total CO2 29 Base Excess 4 H O2 Saturation 95 ABG pCO2 39.4 ABG pO2 70 L O2 Delivery Device Room Air Radiography Diagnostic Testing: Radiology Impression Chest X-Ray 06/10/22 16:18 IMPRESSION: Stable enlarged heart. Electronically Signed: Fran Louie MD at 17:02 EDT , Physical Exam Const alert, oriented x3, no apparent distress, average body habitus, healthy appearing and well nourished HEENT normocephalic and moist oral mucous membranes Eyes PERRL Neck full ROM Resp normal respiratory effort, no retractions and no use of accessory muscles GI GI Narrative: Soft, nontender, bandage clean dry and intact Extremity normal to inspection, full ROM and no clubbing, cyanosis or edema Neuro moves all extremities and no focal motor deficits Psych mental status grossly normal, affect normal, speech normal and activity/motor behavior normal Assessment & Plan (1) delivery delivered: PLAN: Postop day 4 status post primary section for nonreassuring heart tones. Pain well controlled. Formula feeding. Preeclampsia with severe features based on severe range blood pressure status post magnesium x2. Patient remains asymptomatic. Hospitalist consulted, hospitalist adjusted blood pressure medication to labetalol 40 mg 3 times daily and Procardia 30 mg twice daily. Patient also noted with sleep apnea to continue to titrate O2 levels when sleeping per hospitalist. We will continue to monitor blood pressures and signs and symptoms of preeclampsia. We will continue to be in discussion with hospitalist about home-going options. Educated patient and partner on current state and long-term health care plan. Patient and partner state understanding, all questions answered
[2022-06-11] MEDS: Enoxaparin 40 MG/0.4 ML Syringe SC ×2 (09:53→22:37)
[2022-06-11] MEDS: NIFEdipine 30 MG Tablet PO ×2 (09:54→22:37)
[2022-06-11] MEDS: Senna/Docusate Sodium 1 Tablet PO (09:54)
--- NOTE | 2022-06-11 11:23 | PN_ITS ---
Subjective Subjective Patient seen and examined. She had no complaints and said she felt much better today. She denied any headache, chest pain, palpitations, dizziness, nausea, vomiting and abdominal pain. Review of systems is otherwise negative. Her BP has improved. Objective Data Objective Data Vital Signs: Vital Signs Temp Pulse Resp BP Pulse Ox O2 Del Method O2 Flow Rate 98.3 F 80 16 131/62 H 93 Room Air 3 06/10/22 19:50 06/11/22 06:12 06/11/22 03:33 06/11/22 06:12 06/11/22 03:33 06/11/22 03:33 06/10/22 09:30 Oxygen Flow Rate (L/min) 3 Oxygen Delivery Method Room Air Weight: 304 lb Body Mass Index (BMI) 52.2 Intake & Output: Intake and Output for Last 24 Hours 06/09/22 06/10/22 06/11/22 23:59 23:59 23:59 Intake Total 430 / 430 1818.62 / 1818.62 Output Total 1500 / 1500 1450 / 1450 1800 / 1800 Balance -1070 / -1070 368.62 / 368.62 -1800 / -1800 Lab / Micro Data Result Diagrams: 06/11/22 05:15 06/11/22 05:15 Labs: Laboratory Results - last 24 hr 06/10/22 12:40: Magnesium 6.5 H* 06/10/22 16:10: WBC 11.4 H, RBC 3.23 L, Hgb 8.5 L, Hct 27.8 L, MCV 86.1, MCH 26.3 L, MCHC 30.6 L, RDW Std Deviation 49.4 H, RDW Coeff of Terrance 15.9 H, Plt Count 290, MPV 10.5 06/10/22 16:10: Sodium 138, Potassium 3.8, Chloride 106, Carbon Dioxide 26.0, Anion Gap 6, BUN 12, Creatinine 0.55, Estim Creat Clear Calc 138.55, Est GFR (MDRD) Af Amer 175, Est GFR (MDRD) Non-Af 145, BUN/Creatinine Ratio 21.7 H, Glucose 101, Calcium 7.3 L, Magnesium 5.9 H*, Total Bilirubin 0.20, AST 27, ALT 17, Alkaline Phosphatase 131 H, Total Protein 5.7 L, Albumin 1.7 L, Globulin 4.0, Albumin/Globulin Ratio 0.4 L 06/10/22 18:37: Magnesium 4.8 H 06/11/22 05:15: WBC 11.4 H, RBC 3.31 L, Hgb 8.7 L, Hct 28.5 L, MCV 86.1, MCH 26.3 L, MCHC 30.5 L, RDW Std Deviation 49.4 H, RDW Coeff of Terrance 15.9 H, Plt Count 304, MPV 10.2, Immature Gran % (Auto) 1.800 H, Neut % (Auto) 66.7, Lymph % (Auto) 23.2, [place] % (Auto) 6.1, Eos % (Auto) 1.9, Baso % (Auto) 0.3, Absolute Neuts (auto) 7.6, Absolute Lymphs (auto) 2.65, Nucleated RBC % 0.3 06/11/22 05:15: Sodium 140, Potassium 3.9, Chloride 108 H, Carbon Dioxide 27.0, Anion Gap 5, BUN 14, Creatinine 0.53 L, Estim Creat Clear Calc 143.77, Est GFR (MDRD) Af Amer 183, Est GFR (MDRD) Non-Af 151, BUN/Creatinine Ratio 26.2 H, Glucose 81, Calcium 8.1 L, Total Bilirubin 0.20, AST 38 H, ALT 26, Alkaline Phosphatase 133 H, Lactate Dehydrogenase 273 H, Total Protein 5.8 L, Albumin 1.8 L, Globulin 4.0, Albumin/Globulin Ratio 0.4 L Micro: Microbiology 06/06/22 Unknown Genital vaginal Group B Streptococcus Culture - Final Group B Beta Streptococcus is not isolated. ABG Data ABG results: ABG 06/10/22 17:23 Specimen Type ART Sample Site L Radial pH 7.46 H Bicarbonate Actual 27.8 H Total CO2 29 Base Excess 4 H O2 Saturation 95 ABG pCO2 39.4 ABG pO2 70 L O2 Delivery Device Room Air Radiography Diagnostic Testing: Radiology Impression Chest X-Ray 06/10/22 16:18 IMPRESSION: Stable enlarged heart. Electronically Signed: Fran Louie MD at 17:02 EDT , Physical Exam Const alert, oriented x3 and no apparent distress General Appearance: cooperative HEENT normocephalic, head/scalp atraumatic and moist oral mucous membranes Eyes PERRL and EOMs intact bilaterally Neck no lymphadenopathy and supple Lymph Lymphatic: no lymphadenopathy noted and no lymphedema noted Resp normal respiratory effort, normal air movement and clear to auscultation bilaterally Cardio regular rate, regular rhythm, S1 normal heart sound, S2 normal heart sound and no murmurs GI normal to inspection, nondistended, normoactive bowel sounds, soft to palpation, non-tender and non-distended GI Narrative: obese abdomen Extremity normal capillary refill Extremity Narrative: 1+ bilateral pitting pedal edema Skin General Skin Exam: no breakdown Neuro CN's II-XII intact bilaterally and no focal motor deficits Motor Exam: strength 5/5 throughout Psych thought process normal Appearance: appropriate Assessment & Plan Assessment/Plan (1) Preeclampsia: (2) delivery delivered: PLAN: Plan #Pre-eclampsia * BP is improving since delivery. She is on nifdipine and labetalol * denies any headache, blurred vision, chest pain or abdominal pain. * continue BP meds. * IV labetalol prn * * #Nocturnal Hypoxia * likely due to obesity hypoventilation syndrome and sleep apnea * 2D echo ordered and pending * #Super morbid obesity * BMI is 52.2. Complicates acute care, expected recovery and prognosis. * DT prophylaxis: lovenox Charges/Coding Visit Charges Inpatient E&M: 93450 Subs Hosp L2
[2022-06-11] MEDS: Escitalopram Oxalate 10 MG Tablet PO (12:46)
--- NOTE | 2022-06-11 16:49 | CASEMGMT ---
Social Work Labor and Delivery Unit Chart reviewed and noted that patient/mother of baby (MOB) hospitalization has continued for treatment related to preeclampsia. Presented to MOB's room today, and also present in the room was the father of baby (FOB). This technical proposal writer provided MOB and FOB with a brochure on area physicians including primary care and internal medicine. MOB had previously identified not having a primary care provider and would like information and numbers to call. FOB spoke up and indicated to also need a primary care doctor due to the FOB's doctor just retiring. Checked in on how MOB and FOB are doing with continued stay. FOB talkative, attempting to offer reassurance to MOB that things are getting better, and that MOB will get out of the hospital soon. MOB more quiet, intermittently looking at the baby. MOB did become tearful at one point, acknowledging that this has been difficult and wants to be able to go home. Emotional support and supportive encouragement provided. MOB reports she is looking forward to getting out of the room and taking a quick walk, and hopes to be able to get some fresh air soon. FOB expressed appreciation for social worker clinical coming to talk with MOB and FOB and check on how they are doing. Let MOB know that as the stay continues, if MOB is in any type of distress social work continues to be available for support. Plan: Discharge home when medically stable. Resources have been provided previously for home-going. Information provided today on primary care and internal medicine in the community. -KADIE Arenas, CAPACITY ANALYST *This note was generated with [employer] software. It may contain incorrect words, spelling, and punctuation that were not noted in review of the chart prior to signing*
[2022-06-11 20:37] LABS: Absolute Lymphocyte Count 2.05 X10^3/uL (0.83-4.51); Absolute Neutrophil Count 9.5 X10^3/uL (2.0-7.7); Basophil# 0.04 X10^3/uL; Basophil% 0.3 % (0-1); Eosinophils% 2.4 % (0-5); Hematocrit 31.3 % (37-47); Hemoglobin 9.2 g/dL (12.0-15.0); Lymphocyte # 2.05 X10^3/ul (0.83-4.51); Lymphocyte % 16.1 % (19-41); Mean Corp Hgb Conc 29.4 g/dL (32-36); Mean Corpuscular Hgb 25.6 pg (27.0-32.0); Mean Corpuscular Volume 87.2 fL (81-99); Mean Platelet Vol. 10.1 fl (6.2-12.0); Monocyte# 0.67 X10^3/uL; Monocyte% 5.3 % (0-10); NRBC Flagged by Analyzer 0 % (0-5); Neutrophil # 9.46 X10^3/uL (2.7-7.7); Platelet Count 363 K/mm3 (150-450); RBC Distribution Width CV 16.2 % (11.6-14.6); RBC Distribution Width SD 50.5 fl (35.1-43.9); Red Blood Count 3.59 M/mm3 (4.2-5.4); White Blood Count 12.8 K/mm3 (4.4-11.0)
[2022-06-11 20:46] LABS: ALB/GLOB Ratio 0.4 RATIO (0.9-2.4); AST(SGOT) 33 U/L (15-37); Alanine Aminotransfer ALT/SGPT 30 U/L (13-56); Alkaline Phosphatase 146 U/L (45-117); Anion Gap 7 (5-15); BUN 14 mg/dL (7-18); BUN/Creat Ratio 22.3 RATIO (10-20); Calcium,Total 8.8 mg/dL (8.5-10.1); Chloride 109 mmol/L (98-107); Creatinine, Serum 0.63 mg/dL (0.55-1.02); EST Glomerular Filtration Rate 125 mL/min (>60); Est Glom Filt Rate - Afr Amer 151 mL/min (>60); Estimated Creatinine Clearance 120.95 ml/min; Globulin 4.5 g/dL (2.2-4.2); Glucose 103 mg/dL (74-106); LDH 257 U/L (84-246); Potassium 4.1 mmol/L (3.5-5.1); Protein, Total 6.5 g/dL (6.4-8.2); Sodium Level 139 mmol/L (136-145)
[2022-06-12] VITALS (31 sets, daily range): BP systolic 111–185; BP diastolic 60–111; PULSE 66–86; RESP 15–18; TEMP 36.2–37; O2SAT 95–98
[2022-06-12] MEDS: Acetaminophen 500 MG Tablet 1000 MG PO ×4 (00:29→18:58)
[2022-06-12] MEDS: Labetalol 200 MG Tablet 400 MG PO ×2 (05:43→14:29)
[2022-06-12] MEDS: 0.9% Saline Lock 10 ML Syringe IV ×5 (06:47→20:34)
[2022-06-12 07:24] LABS: Absolute Lymphocyte Count 2.84 X10^3/uL (0.83-4.51); Absolute Neutrophil Count 7.9 X10^3/uL (2.0-7.7); Basophil# 0.05 X10^3/uL; Basophil% 0.4 % (0-1); Eosinophil# 0.28 X10^3/uL; Eosinophils% 2.3 % (0-5); Hematocrit 30.6 % (37-47); Hemoglobin 9.2 g/dL (12.0-15.0); Lymphocyte # 2.84 X10^3/ul (0.83-4.51); Lymphocyte % 23.7 % (19-41); Mean Corp Hgb Conc 30.1 g/dL (32-36); Mean Corpuscular Hgb 25.8 pg (27.0-32.0); Mean Platelet Vol. 10.1 fl (6.2-12.0); Monocyte# 0.71 X10^3/uL; Monocyte% 5.9 % (0-10); NRBC Flagged by Analyzer 0.3 % (0-5); Neutrophil # 7.89 X10^3/uL (2.7-7.7); Neutrophil % 65.9 % (47-70); Platelet Count 350 K/mm3 (150-450); RBC Distribution Width CV 15.9 % (11.6-14.6); RBC Distribution Width SD 49.3 fl (35.1-43.9); Red Blood Count 3.56 M/mm3 (4.2-5.4)
[2022-06-12 07:50] LABS: ALB/GLOB Ratio 0.5 RATIO (0.9-2.4); AST(SGOT) 28 U/L (15-37); Alanine Aminotransfer ALT/SGPT 29 U/L (13-56); Albumin, Serum 2.1 g/dL (3.2-5.0); Alkaline Phosphatase 144 U/L (45-117); Anion Gap 5 (5-15); BUN 12 mg/dL (7-18); BUN/Creat Ratio 25.2 RATIO (10-20); Calcium,Total 8.7 mg/dL (8.5-10.1); Chloride 109 mmol/L (98-107); Creatinine, Serum 0.48 mg/dL (0.55-1.02); EST Glomerular Filtration Rate 172 mL/min (>60); Est Glom Filt Rate - Afr Amer 208 mL/min (>60); Estimated Creatinine Clearance 158.75 ml/min; Globulin 4.4 g/dL (2.2-4.2); Glucose 77 mg/dL (74-106); LDH 277 U/L (84-246); Potassium 3.8 mmol/L (3.5-5.1); Protein, Total 6.5 g/dL (6.4-8.2); Sodium Level 139 mmol/L (136-145)
--- NOTE | 2022-06-12 08:14 | PCM.PN.OB ---
Subjective Subjective No overnight complaints. Denies headache, vision change, chest pain, shortness of breath, nausea vomit, right upper quadrant pain. Objective Data Objective Data Vital Signs: Vital Signs Temp Pulse Resp BP Pulse Ox O2 Del Method O2 Flow Rate 97.2 F L 70 18 149/83 H 96 Room Air 3 06/12/22 01:42 06/12/22 01:42 06/12/22 01:42 06/12/22 01:42 06/12/22 01:42 06/12/22 01:42 06/10/22 09:30 Oxygen Flow Rate (L/min) 3 Oxygen Delivery Method Room Air Weight: 304 lb Body Mass Index (BMI) 52.2 Intake & Output: Intake and Output for Last 24 Hours 06/10/22 06/11/22 06/12/22 23:59 23:59 23:59 Intake Total 1818.62 / 1818.62 Output Total 1450 / 1450 1800 / 1800 Balance 368.62 / 368.62 -1800 / -1800 Lab / Micro Data Result Diagrams: 06/12/22 06:57 06/12/22 06:57 Labs: Laboratory Results - last 24 hr 06/11/22 20:20: WBC 12.8 H, RBC 3.59 L, Hgb 9.2 L, Hct 31.3 L, MCV 87.2, MCH 25.6 L, MCHC 29.4 L, RDW Std Deviation 50.5 H, RDW Coeff of Terrance 16.2 H, Plt Count 363, MPV 10.1, Immature Gran % (Auto) 1.900 H, Neut % (Auto) 74.0 H, Lymph % (Auto) 16.1 L, [place] % (Auto) 5.3, Eos % (Auto) 2.4, Baso % (Auto) 0.3, Absolute Neuts (auto) 9.5 H, Absolute Lymphs (auto) 2.05, Nucleated RBC % 0 06/11/22 20:20: Sodium 139, Potassium 4.1, Chloride 109 H, Carbon Dioxide 23.0, Anion Gap 7, BUN 14, Creatinine 0.63, Estim Creat Clear Calc 120.95, Est GFR (MDRD) Af Amer 151, Est GFR (MDRD) Non-Af 125, BUN/Creatinine Ratio 22.3 H, Glucose 103, Calcium 8.8, Total Bilirubin 0.20, AST 33, ALT 30, Alkaline Phosphatase 146 H, Lactate Dehydrogenase 257 H, Total Protein 6.5, Albumin 2.0 L, Globulin 4.5 H, Albumin/Globulin Ratio 0.4 L 06/12/22 06:57: WBC 12.0 H, RBC 3.56 L, Hgb 9.2 L, Hct 30.6 L, MCV 86.0, MCH 25.8 L, MCHC 30.1 L, RDW Std Deviation 49.3 H, RDW Coeff of Terrance 15.9 H, Plt Count 350, MPV 10.1, Immature Gran % (Auto) 1.800 H, Neut % (Auto) 65.9, Lymph % (Auto) 23.7, [place] % (Auto) 5.9, Eos % (Auto) 2.3, Baso % (Auto) 0.4, Absolute Neuts (auto) 7.9 H, Absolute Lymphs (auto) 2.84, Nucleated RBC % 0.3 06/12/22 06:57: Sodium 139, Potassium 3.8, Chloride 109 H, Carbon Dioxide 25.0, Anion Gap 5, BUN 12, Creatinine 0.48 L, Estim Creat Clear Calc 158.75, Est GFR (MDRD) Af Amer 208, Est GFR (MDRD) Non-Af 172, BUN/Creatinine Ratio 25.2 H, Glucose 77, Calcium 8.7, Total Bilirubin 0.20, AST 28, ALT 29, Alkaline Phosphatase 144 H, Lactate Dehydrogenase 277 H, Total Protein 6.5, Albumin 2.1 L, Globulin 4.4 H, Albumin/Globulin Ratio 0.5 L Micro: Microbiology 06/06/22 Unknown Genital vaginal Group B Streptococcus Culture - Final Group B Beta Streptococcus is not isolated. Radiography Diagnostic Testing: Radiology Impression Echocardiogram 06/10/22 13:06 Interpretation Summary The estimated ejection fraction is 55 %. Trivial aortic valve insufficiency. Ordering Physician: Kassie Tolentino Referring Physician: Saman Telles Performed By: Osvaldo Valadez, [facility] Physical Exam Const alert, oriented x3, no apparent distress, average body habitus, healthy appearing and well nourished HEENT normocephalic and moist oral mucous membranes Eyes PERRL Neck full ROM Resp normal respiratory effort, no retractions and no use of accessory muscles GI GI Narrative: Soft, nontender, bandage clean dry and intact Extremity normal to inspection, full ROM and no clubbing, cyanosis or edema Neuro moves all extremities and no focal motor deficits Psych mental status grossly normal, affect normal, speech normal and activity/motor behavior normal Assessment & Plan (1) delivery delivered: PLAN: Postop day 5 status post primary section for intolerance of labor. Formula feeding. Pain well controlled. Preeclampsia with severe features based on severe range blood pressures status post magnesium x2. Hospitalist managing blood pressure medication. Pending hospitalist recommendations will adjust blood pressure medication and discuss thoughts on discharge plan with hospitalist. Patient remains asymptomatic
[2022-06-12] MEDS: Senna/Docusate Sodium 1 Tablet PO (10:05)
[2022-06-12] MEDS: Escitalopram Oxalate 10 MG Tablet PO (10:11)
[2022-06-12] MEDS: Enoxaparin 40 MG/0.4 ML Syringe SC ×2 (10:11→21:44)
[2022-06-12] MEDS: NIFEdipine 30 MG Tablet PO (10:14)
--- NOTE | 2022-06-12 10:36 | NURSING ---
call placed to Dr. Mondragon the hospitilist on pt. update. Dr. Mondragon would like BP checked at home in the morning and evening, she said medication will stay the same and to take her blood pressure at 1215
--- NOTE | 2022-06-12 10:38 | NURSING ---
Call placed to [facility] talked to Heidi and updated her on what the hospitalist had said on medication staying the same, BP need checked at home morning and evening.
--- NOTE | 2022-06-12 11:11 | PN_ITS ---
Subjective Subjective Patient seen and examined. She had no complaints today and felt well. She had an uneventful night. Her BP was running a bit high this morning with systolic in the 140s. She hadnt yet received her meds at that time. Review of systems is otherwise negative. Objective Data Objective Data Vital Signs: Vital Signs Temp Pulse Resp BP Pulse Ox O2 Del Method O2 Flow Rate 98.4 F 74 18 137/65 H 95 Room Air 3 06/12/22 08:21 06/12/22 08:21 06/12/22 08:21 06/12/22 10:05 06/12/22 08:21 06/12/22 08:21 06/10/22 09:30 Oxygen Flow Rate (L/min) 3 Oxygen Delivery Method Room Air Weight: 304 lb Body Mass Index (BMI) 52.2 Intake & Output: Intake and Output for Last 24 Hours 06/10/22 06/11/22 06/12/22 23:59 23:59 23:59 Intake Total 1818.62 / 1818.62 Output Total 1450 / 1450 1800 / 1800 Balance 368.62 / 368.62 -1800 / -1800 Lab / Micro Data Result Diagrams: 06/12/22 06:57 06/12/22 06:57 Labs: Laboratory Results - last 24 hr 06/11/22 20:20: WBC 12.8 H, RBC 3.59 L, Hgb 9.2 L, Hct 31.3 L, MCV 87.2, MCH 25.6 L, MCHC 29.4 L, RDW Std Deviation 50.5 H, RDW Coeff of Terrance 16.2 H, Plt Count 363, MPV 10.1, Immature Gran % (Auto) 1.900 H, Neut % (Auto) 74.0 H, Lymph % (Auto) 16.1 L, [place] % (Auto) 5.3, Eos % (Auto) 2.4, Baso % (Auto) 0.3, Absolute Neuts (auto) 9.5 H, Absolute Lymphs (auto) 2.05, Nucleated RBC % 0 06/11/22 20:20: Sodium 139, Potassium 4.1, Chloride 109 H, Carbon Dioxide 23.0, Anion Gap 7, BUN 14, Creatinine 0.63, Estim Creat Clear Calc 120.95, Est GFR (MDRD) Af Amer 151, Est GFR (MDRD) Non-Af 125, BUN/Creatinine Ratio 22.3 H, Glucose 103, Calcium 8.8, Total Bilirubin 0.20, AST 33, ALT 30, Alkaline Phosphatase 146 H, Lactate Dehydrogenase 257 H, Total Protein 6.5, Albumin 2.0 L , Globulin 4.5 H, Albumin/Globulin Ratio 0.4 L 06/12/22 06:57: WBC 12.0 H, RBC 3.56 L, Hgb 9.2 L, Hct 30.6 L, MCV 86.0, MCH 25.8 L, MCHC 30.1 L, RDW Std Deviation 49.3 H, RDW Coeff of Terrance 15.9 H, Plt Count 350, MPV 10.1, Immature Gran % (Auto) 1.800 H, Neut % (Auto) 65.9, Lymph % (Auto) 23.7, [place] % (Auto) 5.9, Eos % (Auto) 2.3, Baso % (Auto) 0.4, Absolute Neuts (auto) 7.9 H, Absolute Lymphs (auto) 2.84, Nucleated RBC % 0.3 06/12/22 06:57: Sodium 139, Potassium 3.8, Chloride 109 H, Carbon Dioxide 25.0, Anion Gap 5, BUN 12, Creatinine 0.48 L, Estim Creat Clear Calc 158.75, Est GFR (MDRD) Af Amer 208, Est GFR (MDRD) Non-Af 172, BUN/Creatinine Ratio 25.2 H, Glucose 77, Calcium 8.7, Total Bilirubin 0.20, AST 28, ALT 29, Alkaline Phosphatase 144 H, Lactate Dehydrogenase 277 H, Total Protein 6.5, Albumin 2.1 L , Globulin 4.4 H, Albumin/Globulin Ratio 0.5 L 06/12/22 06:57: Blood Type A POSITIVE, Antibody Screen NEGATIVE Micro: Microbiology 06/06/22 Unknown Genital vaginal Group B Streptococcus Culture - Final Group B Beta Streptococcus is not isolated. Radiography Diagnostic Testing: Radiology Impression Echocardiogram 06/10/22 13:06 Interpretation Summary The estimated ejection fraction is 55 %. Trivial aortic valve insufficiency. Ordering Physician: Kassie Tolentino Referring Physician: Saman Telles Performed By: Osvaldo Valadez RCS Physical Exam Const alert, oriented x3 and no apparent distress Constitutional Narrative: obese General Appearance: cooperative HEENT normocephalic, head/scalp atraumatic and moist oral mucous membranes Eyes PERRL and EOMs intact bilaterally Neck no lymphadenopathy, supple and no JVD Lymph Lymphatic: no lymphadenopathy noted and no lymphedema noted Resp normal respiratory effort, normal air movement and clear to auscultation bilaterally Cardio regular rate, regular rhythm, S1 normal heart sound, S2 normal heart sound and no murmurs GI normal to inspection, nondistended, normoactive bowel sounds, soft to palpation, non-tender and non-distended GI Narrative: obese abdomen Extremity normal capillary refill Extremity Narrative: 1+ bilateral pitting pedal edema Skin General Skin Exam: no breakdown Neuro CN's II-XII intact bilaterally and no focal motor deficits Motor Exam: strength 5/5 throughout Psych thought process normal Appearance: appropriate Assessment & Plan Assessment/Plan (1) Preeclampsia: (2) delivery delivered: PLAN: Plan #Pre-eclampsia * She is on nifedipine and labetalol * BP is improving slowly, though it was a bit elevated this morning * denies any headache, blurred vision, chest pain or abdominal pain. * continue BP meds- will need to go home with a prescription for labetalol and nifedipine. French counseled to keep a BP log and record her BP in the morning and evening. She is to then follow up with her PCP and bank examiner with her BP log for meds to be adjusted as needed. * IV labetalol prn * * #Nocturnal Hypoxia * likely due to obesity hypoventilation syndrome and sleep apnea * 2D echo showed EF of 55%, with trivial aortic valve insufficiency * #Super morbid obesity * BMI is 52.2. Complicates acute care, expected recovery and prognosis. * DT prophylaxis: lovenox Disposition: patient stable for dc home from hospitalist standpoint once her BP improves. Charges/Coding Visit Charges Inpatient E&M: 05755 Subs Hosp L2
--- NOTE | 2022-06-12 12:41 | PCM.DC.BLA ---
Discharge Summary Date of Admission: 06/06/22 Date of Discharge: 06/12/22 Summary: Patient arrived on 06/06/2022 with preeclampsia with severe features based on severe range blood pressures. Patient was started on magnesium and treated with p.o. and IV antihypertensive medications. Induction of labor ensued, complicated by hypoxia discovered to be sleep apnea and hypertension. intolerance of labor, patient elected for primary section which was performed on 06/07/2022. was complicated by persistent severe range blood pressures requiring magnesium for 24 hours after delivery and restarted on post op day 2. Hospitalist was consulted who gave instruction on oral medications for blood pressures and evaluation for hypoxia and sleep apnea. Patient discharged home on 06/12/22. Meaningful Use Info Meaningful Use Diagnoses (Choose all that apply): None applicable Discharge Plan Admission Admit Date/Time: 06/06/22 17:55 Primary Reason for Your Visit: Hypertension Attending Provider: Saman Telles Primary Care Provider: Care Physician,Ale Primary Consulting Providers: Rere Mondragon Instructions Additional Instructions / Restrictions: Regular diet. Okay to shower. No tub baths for 2 weeks. No intercourse for 4 to 6 weeks. No lifting over 25 pounds for 2 to 3 weeks. Call if fevers, chills, chest pain, shortness of breath, headache, visual changes, right upper quadrant pain. Follow-up tomorrow for blood pressure check and incision evaluation Discharge Orders/Prescriptions Prescriptions: New nifedipine 30 mg Tablet Extended Release 24hr 30 mg PO BID Qty: 30 1RF enoxaparin 40 mg/0.4 mL Syringe 40 mg subcut BID 30 Days Qty: 24 2RF labetalol 100 mg tablet 400 mg PO TID 30 Days Qty: 360 2RF Continued vit,[id number] 1 TABLET tablet 1 tab PO DAILY hydroxyzine pamoate [Vistaril] 50 mg Capsule 50 mg PO QHS escitalopram oxalate [Lexapro] 10 mg Tablet 10 mg PO DAILY Referrals / Follow Up: Kelly Iqbal MD [Med Staff - Active Staff] - Within 2 Weeks (see to establish PCP care) Care Physician,No Primary [Primary Care Provider] - Disposition Disposition (needs filled in before D/C Order can be placed): Home, Self Care
--- NOTE | 2022-06-12 13:26 | NURSING ---
Call placed to [facility] and talked to Day ALANIZ and talked to her on PT. go home medication, this RN suggested that Dr. Saman Telles call the Hospitalist Dr. Mondragon to confirm pt. medication is correct that she goes home one.
--- NOTE | 2022-06-12 13:31 | NURSING ---
Day ALANIZ from [place] called to confirm that she talked to Dr. Saman Telles about medication of labetolol 400mg BID script. This RN also checked to make sure Dr. Saman Telles confirm with Dr. Mondragon on medication and Day ALANIZ confirmed he did.
[2022-06-12] MEDS: hydrALAZINE 20 MG/ML Vial 10 MG IV (14:51)
--- NOTE | 2022-06-12 15:22 | PN.OBGYN_ITS ---
Subjective Subjective Patient asymptomatic. Denies headache, vision changes, chest pain, shortness of breath, nausea vomit, right upper quadrant pain Objective Data Objective Data Vital Signs: Vital Signs Temp Pulse Resp BP Pulse Ox O2 Del Method O2 Flow Rate 98.6 F 80 16 161/77 H 95 Room Air 3 06/12/22 14:10 06/12/22 14:51 06/12/22 14:10 06/12/22 14:47 06/12/22 08:21 06/12/22 08:21 06/10/22 09:30 Oxygen Flow Rate (L/min) 3 Oxygen Delivery Method Room Air Weight: 304 lb Body Mass Index (BMI) 52.2 Intake & Output: Intake and Output for Last 24 Hours 06/10/22 06/11/22 06/12/22 23:59 23:59 23:59 Intake Total 1818.62 / 1818.62 Output Total 1450 / 1450 1800 / 1800 Balance 368.62 / 368.62 -1800 / -1800 Lab / Micro Data Result Diagrams: 06/12/22 06:57 06/12/22 06:57 Labs: Laboratory Results - last 24 hr 06/11/22 20:20: WBC 12.8 H, RBC 3.59 L, Hgb 9.2 L, Hct 31.3 L, MCV 87.2, MCH 25.6 L, MCHC 29.4 L, RDW Std Deviation 50.5 H, RDW Coeff of Terrance 16.2 H, Plt Count 363, MPV 10.1, Immature Gran % (Auto) 1.900 H, Neut % (Auto) 74.0 H, Lymph % (Auto) 16.1 L, [place] % (Auto) 5.3, Eos % (Auto) 2.4, Baso % (Auto) 0.3, Absolute Neuts (auto) 9.5 H, Absolute Lymphs (auto) 2.05, Nucleated RBC % 0 06/11/22 20:20: Sodium 139, Potassium 4.1, Chloride 109 H, Carbon Dioxide 23.0, Anion Gap 7, BUN 14, Creatinine 0.63, Estim Creat Clear Calc 120.95, Est GFR (MDRD) Af Amer 151, Est GFR (MDRD) Non-Af 125, BUN/Creatinine Ratio 22.3 H, Glucose 103, Calcium 8.8, Total Bilirubin 0.20, AST 33, ALT 30, Alkaline Phosphatase 146 H, Lactate Dehydrogenase 257 H, Total Protein 6.5, Albumin 2.0 L , Globulin 4.5 H, Albumin/Globulin Ratio 0.4 L 06/12/22 06:57: WBC 12.0 H, RBC 3.56 L, Hgb 9.2 L, Hct 30.6 L, MCV 86.0, MCH 25.8 L, MCHC 30.1 L, RDW Std Deviation 49.3 H, RDW Coeff of Terrance 15.9 H, Plt Count 350, MPV 10.1, Immature Gran % (Auto) 1.800 H, Neut % (Auto) 65.9, Lymph % (Auto) 23.7, [place] % (Auto) 5.9, Eos % (Auto) 2.3, Baso % (Auto) 0.4, Absolute Neuts (auto) 7.9 H, Absolute Lymphs (auto) 2.84, Nucleated RBC % 0.3 06/12/22 06:57: Sodium 139, Potassium 3.8, Chloride 109 H, Carbon Dioxide 25.0, Anion Gap 5, BUN 12, Creatinine 0.48 L, Estim Creat Clear Calc 158.75, Est GFR (MDRD) Af Amer 208, Est GFR (MDRD) Non-Af 172, BUN/Creatinine Ratio 25.2 H, Glucose 77, Calcium 8.7, Total Bilirubin 0.20, AST 28, ALT 29, Alkaline Phosphatase 144 H, Lactate Dehydrogenase 277 H, Total Protein 6.5, Albumin 2.1 L , Globulin 4.4 H, Albumin/Globulin Ratio 0.5 L 06/12/22 06:57: Blood Type A POSITIVE, Antibody Screen NEGATIVE Micro: Microbiology 06/06/22 Unknown Genital vaginal Group B Streptococcus Culture - Final Group B Beta Streptococcus is not isolated. Physical Exam Const alert, oriented x3, no apparent distress, average body habitus, healthy appearing and well nourished HEENT normocephalic and moist oral mucous membranes Eyes PERRL Neck full ROM Resp normal respiratory effort, no retractions and no use of accessory muscles Extremity normal to inspection and full ROM Psych mental status grossly normal, affect normal, speech normal and activity/motor behavior normal Assessment & Plan (1) : PLAN: Called by nursing with severe range blood pressures, given orders for hydralazine 10 mg IV now. Patient seen and examined patient remains asymptomatic. Tearful with news of not home-going. Discussed case with hospitalist, educated patient is not breast-feeding and discussed antihypertensive options. Hospitalist directed Klonopin now x1, switch to amlodipine daily and metoprolol twice daily. To DC labetalol and Procardia. Discussed case with [facility] who directed to continue management with oral and if necessary IV antihypertensive medications. Educated patient on plan. Discussed we will reevaluate tomorrow and then hospitalist was to continue to adjust blood pressure medications. Patient states understanding, all questions answered by patient and partner.
[2022-06-12] MEDS: cloNIDine HCl 0.1 MG Tablet PO (15:35)
--- NOTE | 2022-06-12 15:43 | NURSING ---
[address] Saman Telles on Pt. having two blood pressures over [facility], 1425 at 160/96 and 1435 at 183/111. Dr. Saman Telles said he would come in to see the pt.
--- NOTE | 2022-06-12 15:45 | NURSING ---
[id number] Dr. Saman Telles called this RN and ordered 10mg Hydralizine IV.
[2022-06-12] MEDS: Metoprolol Tartrate 25 MG Tablet PO (21:44)
--- NOTE | 2022-06-12 23:51 | PN.HOSP_ITS ---
Hospitalist Note Called for elevated blood pressure. Patient's blood pressure was found to be 150/74 with a repeat an hour later at 154/76. Medication was given and repeat 1 hour later was 147/86. Given the fact that she still consistently over 140/80 I added clonidine 0.1 mg p.o. twice daily. She was already maxed out on amlodipine. She was on metoprolol 25 mg p.o. twice daily however heart rates were in the 60s so I did not go up on this. She was given clonidine earlier in the day and this seemed to work well for her. Plan is to repeat her blood pr essure an hour after clonidine given and if continues to be greater than 140/80 we will address further.
[2022-06-13] VITALS (8 sets, daily range): BP systolic 126–150; BP diastolic 74–101; PULSE 64–81; RESP 15–20; TEMP 36.2–37.2; O2SAT 96–98
[2022-06-13] MEDS: cloNIDine HCl 0.1 MG Tablet PO ×2 (00:02→10:11)
[2022-06-13] MEDS: Acetaminophen 500 MG Tablet 1000 MG PO ×3 (00:59→13:31)
[2022-06-13 06:45] LABS: Absolute Lymphocyte Count 2.28 X10^3/uL (0.83-4.51); Absolute Neutrophil Count 7.5 X10^3/uL (2.0-7.7); Basophil# 0.03 X10^3/uL; Basophil% 0.3 % (0-1); Eosinophil# 0.23 X10^3/uL; Eosinophils% 2.1 % (0-5); Hemoglobin 9.6 g/dL (12.0-15.0); Lymphocyte # 2.28 X10^3/ul (0.83-4.51); Mean Corpuscular Hgb 25.9 pg (27.0-32.0); Mean Corpuscular Volume 86.5 fL (81-99); Mean Platelet Vol. 9.6 fl (6.2-12.0); Monocyte# 0.65 X10^3/uL; NRBC Flagged by Analyzer 0 % (0-5); Neutrophil # 7.53 X10^3/uL (2.7-7.7); Neutrophil % 69.2 % (47-70); Platelet Count 371 K/mm3 (150-450); RBC Distribution Width SD 49.9 fl (35.1-43.9); White Blood Count 10.9 K/mm3 (4.4-11.0)
[2022-06-13 07:12] LABS: ALB/GLOB Ratio 0.5 RATIO (0.9-2.4); AST(SGOT) 19 U/L (15-37); Alanine Aminotransfer ALT/SGPT 27 U/L (13-56); Albumin, Serum 2.3 g/dL (3.2-5.0); Alkaline Phosphatase 141 U/L (45-117); Anion Gap 8 (5-15); BUN 10 mg/dL (7-18); BUN/Creat Ratio 19.7 RATIO (10-20); Calcium,Total 8.8 mg/dL (8.5-10.1); Chloride 107 mmol/L (98-107); Creatinine, Serum 0.51 mg/dL (0.55-1.02); EST Glomerular Filtration Rate 160 mL/min (>60); Est Glom Filt Rate - Afr Amer 194 mL/min (>60); Estimated Creatinine Clearance 149.41 ml/min; Globulin 4.6 g/dL (2.2-4.2); Glucose 90 mg/dL (74-106); LDH 254 U/L (84-246); Potassium 3.9 mmol/L (3.5-5.1); Protein, Total 6.9 g/dL (6.4-8.2); Sodium Level 139 mmol/L (136-145)
--- NOTE | 2022-06-13 08:04 | RDU_ITS ---
Reason For Study: HTN Right Renal Artery Left Renal Artery Right renal artery ostium 115.4/32 Left renal artery ostium 93.4/16.7 RSV/EDV. PSV/EDV. Right renal artery proximal Left renal artery proximal PSV/EDV 137.3/38.6 PSV/EDV. 80.2/14.5 . Right renal artery mid 128.5/40.8 Left renal artery mid 108.7/36.4 PSV/EDV. PSV/EDV . Right renal artery distal Left renal artery distal 103.3/29.2 141.5/53.4 PSV/EDV. PSV/EDV. Right Renal Parenchyma Left Renal Parenchyma Upper Pole Medula 34.8/13.3 Left upper pole medulla 40.4/17.1 PSV/EDV. PSV/EDV . Right upper pole medulla EDR 0.4 . Left upper pole medulla EDR 0.4 . Right upper pole medulla R.I. Left upper pole medulla R.I. 0.58 . 0.62 . UP Cortex 25.8/11.1 PSV/EDV. Upper [place] Cortx 21.2/7.1 PSV/EDV. Left upper pole cortex EDR 0.4 . Right upper pole cortex EDR 0.3 . Left upper pole cortex R.I. 0.57 . Right upper pole cortex R.I. 0.66 . Left lower Pole medulla 31.2/11.1 Right lower Pole medulla 26.2/7.7 PSV/EDV . PSV/EDV . Left lower pole medulla EDR 0.4 . Right lower pole medulla EDR 0.3 . Left lower pole medulla R.I. 0.64 . Right lower pole medulla R.I. Lower Pole Cortx 22.1/9.3 PSV/EDV. 0.70 . Left lower pole cortex EDR 0.4 . Lower Pole Cortex 22.5/7.1 PSV/EDV. Left lower pole cortex R.I. 0.58 . Right lower pole cortex EDR 0.3 . Left Renal Hilar Right lower pole cortex R.I. 0.68 . LT Hilar avg 66.7/21.8 PSV/EDV . Right Renal Hilar Left hilar acceleration time 60 Right Hilar avg 62.1/19.3 PSV/EDV. m/sec. Right hilar acceleration time 50 Left Renal Dimensions m/sec. Left kidney size 12.97 cm . Right Renal Dimensions Left cortical dimension 1.89 cm . Right kidney size 11.79 cm . Right cortical dimension 1.76 cm . Aorta Proximal abdominal aorta 1.40 x 1.38 cm . Proximal abdominal aorta peak systolic velocity is 155 cm/sec . Distal abdominal aorta 1.59 x 1.61 cm . Distal abdominal aorta peak systolic velocity is 122 cm/sec . VL/Renal Artery Duplex Ultrasound Interpretation Summary Maximal aortic diameter distally at 1.59 x 1.61 cm in diameter which is normal. Peak systolic velocity within the proximal abdominal aorta is 155 cm second deondre w slightly increased over normal nonspecific etiology but invalidates renal artery to aortic ratio c alculation Less than 60% stenosis bilateral renal arteries Right renal length maintained at a normal 11.79 cm and left renal length mainta ined at a normal 12.97 cm Ordering Physician: Rere Mondragon Performed By: Aurelia Grider RVT
--- NOTE | 2022-06-13 08:32 | PN.OBGYN_ITS ---
Subjective Subjective Resting comfortably in bed Objective Data Objective Data Vital Signs: Vital Signs Temp Pulse Resp BP Pulse Ox O2 Del Method O2 Flow Rate 97.2 F L 64 18 149/89 H 98 Room Air 3 06/13/22 04:30 06/13/22 04:30 06/13/22 04:30 06/13/22 04:30 06/13/22 01:01 06/13/22 04:30 06/10/22 09:30 Oxygen Flow Rate (L/min) 3 Oxygen Delivery Method Room Air Weight: 304 lb Body Mass Index (BMI) 52.2 Intake & Output: Intake and Output for Last 24 Hours 06/11/22 06/12/22 06/13/22 23:59 23:59 23:59 Intake Total 400 / 400 Output Total 1800 / 1800 Balance -1800 / -1800 400 / 400 Lab / Micro Data Result Diagrams: 06/13/22 06:33 06/13/22 06:33 Labs: Laboratory Results - last 24 hr 06/12/22 06:57: Blood Type A POSITIVE, Antibody Screen NEGATIVE 06/13/22 06:33: WBC 10.9, RBC 3.70 L, Hgb 9.6 L, Hct 32.0 L, MCV 86.5, MCH 25.9 L, MCHC 30.0 L, RDW Std Deviation 49.9 H, RDW Coeff of Terrance 16.0 H, Plt Count 371, MPV 9.6, Immature Gran % (Auto) 1.400 H, Neut % (Auto) 69.2, Lymph % (Auto) 21.0, [place] % (Auto) 6.0, Eos % (Auto) 2.1, Baso % (Auto) 0.3, Absolute Neuts (auto) 7.5, Absolute Lymphs (auto) 2.28, Nucleated RBC % 0 06/13/22 06:33: Sodium 139, Potassium 3.9, Chloride 107, Carbon Dioxide 24.0, Anion Gap 8, BUN 10, Creatinine 0.51 L, Estim Creat Clear Calc 149.41, Est GFR (MDRD) Af Amer 194, Est GFR (MDRD) Non-Af 160, BUN/Creatinine Ratio 19.7, Glucose 90, Calcium 8.8, Total Bilirubin 0.30, AST 19, ALT 27, Alkaline Phosp hatase 141 H, Lactate Dehydrogenase 254 H, Total Protein 6.9, Albumin 2.3 L, Globulin 4.6 H, Albumin/Globulin Ratio 0.5 L Micro: Microbiology 06/06/22 Unknown Genital vaginal Group B Streptococcus Culture - Final Group B Beta Streptococcus is not isolated. Physical Exam Const alert, oriented x3, no apparent distress, average body habitus, healthy appearing and well nourished HEENT normocephalic and moist oral mucous membranes Eyes PERRL Neck full ROM Resp normal respiratory effort, no retractions and no use of accessory muscles Extremity normal to inspection and full ROM Neuro moves all extremities and no focal motor deficits Assessment & Plan (1) delivery delivered: PLAN: Postop day 6 status post primary section for intolerance of labor. Formula feeding. Pain well controlled. Preeclampsia with severe f eatures based on severe range blood pressures status post magnesium x2. Currently being comanaged with hospitalist on metoprolol, amlodipine, clonidine. Called overnight by nursing with elevated blood pressures above 140s started on clonidine by hospitalist. Patient today resting comfortably in bed. Reviewed treatment plan with partner extensively, discussed continued monitoring and will discuss with hospitalist and attempt for home-going management. All questions answered by partner
--- NOTE | 2022-06-13 09:33 | NURSING ---
0845-center panis area noted to be reddened/warm bumpy with areas of abrasions d/t pt scratching . pt states she has been itching this.
[2022-06-13] MEDS: Enoxaparin 40 MG/0.4 ML Syringe SC (10:06)
[2022-06-13] MEDS: Hydrocortisone 2.5% Crm 1 APPLIC TOPICAL (10:06)
[2022-06-13] MEDS: Metoprolol Tartrate 50 MG Tablet PO (10:08)
[2022-06-13] MEDS: Senna/Docusate Sodium 1 Tablet PO (10:10)
[2022-06-13] MEDS: amLODIPine 10 MG Tablet PO (10:11)
[2022-06-13] MEDS: Escitalopram Oxalate 10 MG Tablet PO (10:11)
--- NOTE | 2022-06-13 12:09 | CASEMGMT ---
Social Work Presented to patient's room, to check in and offer support as hospitalization continues. Patient sleeping soundly in darkened room and did not awaken to door knock or calling name. Decided to let patient continue sleeping, and will attempt to check on patient at a later time as able. -DOROTHEA Arenas, [employer] MANAGER
[2022-06-13] MEDS: MedroxyPROGESTERone 150 MG/ML Syringe IM (13:58)
--- NOTE | 2022-06-13 15:58 | PN_ITS ---
Subjective Subjective Patient seen and examined. She had no complaints today and had an uneventful night. She felt well and review of systems otherwise negative. Blood pressure was in the 140s overnight systolic. She has otherwise remained hemodynamically stable. Objective Data Objective Data Vital Signs: Vital Signs Temp Pulse Resp BP Pulse Ox O2 Del Method O2 Flow Rate 97.9 F 81 20 H 132/74 H 96 Room Air 3 06/13/22 13:44 06/13/22 13:44 06/13/22 13:44 06/13/22 13:44 06/13/22 13:44 06/13/22 13:44 06/10/22 09:30 Oxygen Flow Rate (L/min) 3 Oxygen Delivery Method Room Air Weight: 304 lb Body Mass Index (BMI) 52.2 Intake & Output: Intake and Output for Last 24 Hours 06/11/22 06/12/22 06/13/22 23:59 23:59 23:59 Intake Total 400 / 400 Output Total 1800 / 1800 Balance -1800 / -1800 400 / 400 Lab / Micro Data Result Diagrams: 06/13/22 06:33 06/13/22 06:33 Labs: Laboratory Results - last 24 hr 06/13/22 06:33: WBC 10.9, RBC 3.70 L, Hgb 9.6 L, Hct 32.0 L, MCV 86.5, MCH 25.9 L, MCHC 30.0 L, RDW Std Deviation 49.9 H, RDW Coeff of Terrance 16.0 H, Plt Count 371, MPV 9.6, Immature Gran % (Auto) 1.400 H, Neut % (Auto) 69.2, Lymph % (Auto) 21.0, [place] % (Auto) 6.0, Eos % (Auto) 2.1, Baso % (Auto) 0.3, Absolute Neuts (auto) 7.5, Absolute Lymphs (auto) 2.28, Nucleated RBC % 0 06/13/22 06:33: Sodium 139, Potassium 3.9, Chloride 107, Carbon Dioxide 24.0, Anion Gap 8, BUN 10, Creatinine 0.51 L, Estim Creat Clear Calc 149.41, Est GFR (MDRD) Af Amer 194, Est GFR (MDRD) Non-Af 160, BUN/Creatinine Ratio 19.7, Glucose 90, Calcium 8.8, Total Bilirubin 0.30, AST 19, ALT 27, Alkaline Phosphatase 141 H, Lactate Dehydrogenase 254 H, Total Protein 6.9, Albumin 2.3 L , Globulin 4.6 H, Albumin/Globulin Ratio 0.5 L Micro: Microbiology 06/06/22 Unknown Genital vaginal Group B Streptococcus Culture - Final Group B Beta Streptococcus is not isolated. Radiography Diagnostic Testing: Radiology Impression Renal Artery Duplex 06/13/22 08:04 Interpretation Summary Maximal aortic diameter distally at 1.59 x 1.61 cm in diameter which is normal. Peak systolic velocity within the proximal abdominal aorta is 155 cm second flow slightly increased over normal nonspecific etiology but invalidates renal artery to aortic ratio calculation Less than 60% stenosis bilateral renal arteries Right renal length maintained at a normal 11.79 cm and left renal length maintained at a normal 12.97 cm Ordering Physician: Rere Mondragon Performed By: Aurelia Grider RVT Physical Exam Const alert, oriented x3 and no apparent distress Constitutional Narrative: obese General Appearance: cooperative HEENT normocephalic, head/scalp atraumatic and moist oral mucous membranes Eyes PERRL and EOMs intact bilaterally Neck no lymphadenopathy, supple and no JVD Lymph Lymphatic: no lymphadenopathy noted and no lymphedema noted Resp normal respiratory effort, normal air movement and clear to auscultation bilaterally Cardio regular rate, regular rhythm, S1 normal heart sound, S2 normal heart sound and no murmurs GI normal to inspection, nondistended, normoactive bowel sounds, soft to palpation, non-tender and non-distended GI Narrative: obese abdomen Extremity normal capillary refill Extremity Narrative: 1+ bilateral pitting pedal edema Skin General Skin Exam: no breakdown Neuro CN's II-XII intact bilaterally and no focal motor deficits Motor Exam: strength 5/5 throughout Psych thought process normal Appearance: appropriate Assessment & Plan Assessment/Plan (1) Preeclampsia: (2) delivery delivered: PLAN: Plan #Pre-eclampsia * She is on nifedipine and labetalol * BP is improving slowly, though it was a bit elevated this morning * denies any headache, blurred vision, chest pain or abdominal pain. * Patient counseled to keep a BP log and record her BP in the morning and evening. She is to then follow up with her PCP and etl developer with her BP log for meds to be adjusted as needed. * IV labetalol prn * Patient switched to metoprolol 50 mg twice daily. She was started on 25 mg twice daily yesterday but this was increased to 50 mg twice daily today. She was placed on amlodipine yesterday [address] her on nifedipine XL 60 mg daily today as we are able to uptitrate to the nifedipine more. * Blood pressure improved and came to the 130s systolic today. Patient therefore okay for discharge home on p.o. metoprolol 50 mg twice daily as well as nifedipine XL 60 mg daily. Counseled to monitor her blood pressure and keep blood pressure logs twice daily as above. If blood pressure is more than 160 systolic or she has any headache, blurred vision or chest pain, she should call her PCP and etl developer and/or go to the emergency immediately. * She had bilateral renal artery duplex which showed less than 60% stenosis of the bilateral renal arteries. * #Nocturnal Hypoxia * likely due to obesity hypoventilation syndrome and sleep apnea * 2D echo showed EF of 55%, with trivial aortic valve insufficiency * #Super morbid obesity * BMI is 52.2. Complicates acute care, expected recovery and prognosis. * DT prophylaxis: lovenox Disposition: patient stable for dc home from hospitalist standpoint today Charges/Coding Visit Charges Inpatient E&M: 25861 Subs Hosp L2
--- NOTE | 2022-06-13 18:07 | DS.PCM_ITS ---
Discharge Summary Date of Admission: 06/06/22 Date of Discharge: 06/13/22 Summary: Patient arrived on 06/06/2022 with preeclampsia with severe features based on severe range blood pressures.? Patient was started on magnesium and treated with p.o. and IV antihypertensive medications.? Induction of labor ensued, complicated by hypoxia discovered to be sleep apnea and hypertension.? intolerance of labor, patient elected for primary section which was performed on 06/07/2022.? was complicated by persistent severe range blood pressures requiring magnesium for 24 hours after delivery and restarted on post op day 2.? Hospitalist was consulted who gave instruction on oral medications for blood pressures and evaluation for hypoxia and sleep apnea.? Patient again had severe range blood pressures on 06/12/22 given IV hydralazine, discussed case with hospitalist and MFM. With team effort adjusted blood pressure medications orally and patient stabilized. Discussed with hospitalist and patient along with partner about discharge, patient understands risk of readmission and discharge home on 06/13/2022 on antihypertensives and Lovenox Meaningful Use Info Meaningful Use Diagnoses (Choose all that apply): None applicable Discharge Plan Admission Admit Date/Time: 06/06/22 17:55 Primary Reason for Your Visit: Hypertension Attending Provider: Saman Telles Primary Care Provider: Care Physician,No Primary Consulting Providers: Rere Mondragon Instructions Additional Instructions / Restrictions: Regular diet. Okay to shower. No tub baths for 2 weeks. No intercourse for 4 to 6 weeks. No lifting over 25 pounds for 2 to 3 weeks. Call if fevers, chills, chest pain, shortness of breath, headache, visual changes, right upper quadrant pain. Follow-up tomorrow for blood pressure check and incision evaluation. Keep a BP log of morning and evening BP at home and present to your PCP and grease and tallow pumper for adjustment of BP meds as needed. Discharge Orders/Prescriptions Prescriptions: New enoxaparin 40 mg/0.4 mL Syringe 40 mg subcut BID 30 Days Qty: 24 2RF nifedipine 60 mg tablet extended release 60 mg PO DAILY Qty: 30 2RF metoprolol tartrate 50 mg Tablet 50 mg PO BID Qty: 60 2RF Continued vit,[id number] 1 TABLET tablet 1 tab PO DAILY hydroxyzine pamoate [Vistaril] 50 mg Capsule 50 mg PO QHS escitalopram oxalate [Lexapro] 10 mg Tablet 10 mg PO DAILY Referrals / Follow Up: Kelly Iqbal MD [Med Staff - Active Staff] - Within 2 Weeks (see to establish PCP care) Care Physician,No Primary [Primary Care Provider] - Disposition Disposition (needs filled in before D/C Order can be placed): Home, Self Care
== END 2022-06-13 18:31 | disposition home or self-care (01) | DRG 540 ==
LOC: WPOUT 17:59 → WP 17:59
PROVIDERS: Admitting Provider Obstetrics & Gynecology; Referring Provider Obstetrics & Gynecology; Visit Provider Obstetrics & Gynecology
DX: O11.4 Pre-existing hypertension with pre-eclampsia, complicating childbirth (principal); E66.2 Morbid (severe) obesity with alveolar hypoventilation; I70.1 Atherosclerosis of renal artery; F41.9 Anxiety disorder, unspecified; O99.354 Diseases of the nervous system complicating childbirth; O76 Abnormality in fetal heart rate and rhythm complicating labor and delivery; O99.42 Diseases of the circulatory system complicating childbirth; O99.344 Other mental disorders complicating childbirth; Z3A.36 36 weeks gestation of pregnancy; Z37.0 Single live birth; Z87.891 Personal history of nicotine dependence; O99.214 Obesity complicating childbirth
CPT/HCPCS: 36415; 36600; 59025; 59050; 71045; 71275; 80053; 81001; 82565; 82570; 82803; 83615; 83735; 84156; 84450; 84460; 84550; 85025; 85027; 86780; 86850; 86900; 86901; 87081; 87653; 93005; 93306; 93975; 94640; 99221; 99252; J7120; Q9967; A4216; G0378; G0463; J0702; J1940; J2405